=== PATIENT | female | born 1945 | race Caucasian/White ===

== ENCOUNTER → 2024-04-18 10:24 | Outpatient (REF) | payer MEDICARE, OTHER, SELFPAY | LOC: HWRAD 10:24 | PROVIDERS: ATTENDING PHYSICIAN Specialist; FAMILY PHYSICIAN Family Medicine | DX: N20.0 Calculus of kidney (principal) | CPT/HCPCS: 74176 ==

== ENCOUNTER 2024-05-17 22:56 | Emergency (ER) | payer MEDICARE, OTHER, SELFPAY ==
[2024-05-17 22:59] VITALS: BP 150/79
[2024-05-18 00:32] VITALS: BMI 36.9
[2024-05-18 00:34] VITALS: BP 133/60
--- NOTE | 2024-05-18 01:23 | ED.GENMED ---
Addendum entered and electronically signed by Yoan Emanuel PA-C 05/21/24 07:12:
Urine culture shows greater than 100,000 colony-forming units of E. coli. Patient was treated for this as an outpatient
Original Note:
History of Present Illness
<FAROOQ Long (Lenka) - Last Filed: 05/18/24 03:20>
General
Chief Complaint: Musculo-Skeletal Complaint
Source: patient
Exam Limitations: none
Time Seen by Provider: 05/18/24 01:03
Nursing documentation reviewed up to this point in time: agreed with
History of Present Illness
History of Present Illness:
Pt is an 78 yo female with PMHx of L nephrolithiasis, cholelithiasis, back pain, GERD, HTN/HLD who present to the ED with R scapular to R flank pain since 1700 this evening (05/17). The pain came on suddenly, is not worsened nor improved by any
specific position, and is moderate-severe in nature. She took tramadol at 2100 with minimal relief. Endorses nausea, denies vomiting. Denies fevers, chills, HOLDER, chest pain or pressure, dyspnea, abdominal or epigastric pain, pelvic pain, changes in
stool or urinary habits. Last BM today was normal. Pt with a 'chronic e.coli infection' causing urinary burning and frequency, UA ordered by infant and toddler teacher (Carlos Alberto) from 05/13/24 showed e.coli infection, was prescribed an antibiotic and picked it up
today, has not taken the antibiotic.
Of note - pt had MOHS surgery done on her R flank on Monday (05/14). While her pain is localized around that area, it does not feel like pain from the surgery, rather feels 'deeper'.
Cholelithiasis seen on CTAP (04/18/24 and 09/09/23)
Daily medications: esomeprazole and ezetimibe
No hx of reaction to contrast.
Denies hx of abdominal surgeries, still has her gallbladder, B/L kidneys, and appendix.
Past History
<FAROOQ Long (Lenka) - Last Filed: 05/18/24 03:20>
Past History
ED Past Medical History: Asthma, GERD, HTN, Hypercholesterolemia and Other (Renal colic, bleeding diverticuli, kidney stones, cholelithiasis)
ED Past Surgical History: Gynecological, Orthopedic, Urological (Ureteric stent placed June 2014, again 2020) and Other (MOHS surgery to R flank (05/14/24))
Social History
Tobacco: Non-smoker
Alcohol: None
Personal:
Living: with family
Employment: Retired
Family History
Family History: Other (Noncontributory)
Phy Exam
<FAROOQ Long (Lenka) - Last Filed: 05/18/24 03:20>
General Physical Exam
General Presentation: mild distress (pt sitting in chair, restless)
General age: appears stated age
General Skin: warm and dry
General Habitus: obese
General Mental: alert
General Hydration: appears well hydrated
ENT Exam
ENT Exam: swallowing well
Cardiovascular Exam
Cardiovascular Exam: regular rate/rhythm, no edema, no gallop, no murmur and normal peripheral pulses
Pulmonary Exam
Pulmonary Exam: lungs clear, no respiratory distress, no rales, no rhonchi, no wheezing and no cough
Gastrointestinal Exam
Gastrointestinal Exam: normal bowel sounds, non tender, soft, no pulsatile mass, non distended, no cva tenderness and no indwelling devices
Palpation: left upper quadrant: No tenderness (negative Franklin), left lower quadrant: No tenderness (negative Franklin), right upper quadrant: No tenderness (negative Franklin) and right lower quadrant: No tenderness (negative Franklin)
Neurological Exam
Neurological Exam: alert, oriented x3 and speech normal
Musculoskeletal Exam
Musculoskeletal Exam: back tenderness (R mid-scapula to R flank)
Skin Exam
Skin Exam: normal color, warm/dry and other (MOHS surgery scar to L flank)
Course
<FAROOQ Long (Lenka) - Last Filed: 05/18/24 03:20>
Orders/Labs/Results
Orders:
Orders
05/17/24 23:01
EKG [Electrocardiogram (*1)] Urgent
Reason for Study: Other
Other Reason for Exam: shoulder to hip pain
EKG- Treatment ONCE
05/18/24 02:00
0.9% Sodium Chloride 1000 ml [Nss] 1,000 ml IV 200 mls/hr
Ketorolac [Toradol] 15 mg IV NOW STA
05/18/24 02:14
Complete Blood Count/With Diff Urgent
Comprehensive Metabolic Panel Urgent
Lactic Acid Urgent
Lipase Urgent
05/18/24 03:08
Renal & Bladder US [US Renal With Bladder] Urgent
Comment:
Reason For Exam: acute R flank pain; hx renal stones
05/18/24 05:03
Urine Microscopic Reflex Cult Urgent
Urine Reflex Culture from UA [Urinalysis Reflex To Culture] Urgent
Date Specimen was Collected: 05/18/24
Time Specimen was Collected: 05:02
Urine Culture Urgent
ARYA Source: U
Specimen Description:
Date Specimen was Collected: 05/18/24
Time Specimen was Collected: 05:02
Abnormal Lab Results
05/18/24 05/18/24
02:14 05:03
RBC 4.04 L 10^6/uL
(4.20-5.40)
Hgb 9.8 L g/dL
(12.0-16.0)
Hct 30.8 L %
(37.0-47.0)
MCV 76.2 L fL
(81.0-99.0)
MCH 24.3 L pg
(27.0-31.0)
MCHC 31.8 L g/dL
(33.0-37.0)
RDW 17.1 H %
(11.5-14.5)
Lymphocytes % 18.5 L %
(20.5-51.1)
Chloride 108 H mmol/L
(98-107)
Glucose 127 H mg/dl
(70-99)
AST 45 H U/L
(14-36)
ALT 38 H U/L
(0-35)
Urine Nitrite (Reflex) Positive A
(Negative)
Leukocyte Esterase Rfl 1+ A
(Negative)
Urine RBC 3-6 A /HPF
(0-2)
Urine WBC (Reflex) 40-50 A /HPF
(0-5)
Urine Bacteria (Reflex) Many A
(Negative)
05/18/24 02:14
05/18/24 02:14
Vital Signs
Initial and Last Documented VS:
Initial Vital Signs
Temp Pulse Resp BP Pulse Ox
97.6 F 90 18 150/79 98
05/17/24 22:59 05/17/24 22:59 05/17/24 22:59 05/17/24 22:59 05/17/24 22:59
Last Documented Vital Signs
Temp Pulse Resp BP Pulse Ox
98.6 F 90 18 145/77 98
05/18/24 04:05 05/17/24 22:59 05/17/24 22:59 05/18/24 05:35 05/17/24 22:59
Yamilkalt;Dunia Thorne DO - Last Filed: 05/18/24 07:05>
Orders/Labs/Results
Orders:
Orders
05/17/24 23:01
EKG [Electrocardiogram (*1)] Urgent
Reason for Study: Other
Other Reason for Exam: shoulder to hip pain
EKG- Treatment ONCE
05/18/24 02:00
0.9% Sodium Chloride 1000 ml [Nss] 1,000 ml IV 200 mls/hr
Ketorolac [Toradol] 15 mg IV NOW STA
05/18/24 02:14
Complete Blood Count/With Diff Urgent
Comprehensive Metabolic Panel Urgent
Lactic Acid Urgent
Lipase Urgent
05/18/24 03:08
Renal & Bladder US [US Renal With Bladder] Urgent
Comment:
Reason For Exam: acute R flank pain; hx renal stones
05/18/24 05:03
Urine Microscopic Reflex Cult Urgent
Urine Reflex Culture from UA [Urinalysis Reflex To Culture] Urgent
Date Specimen was Collected: 05/18/24
Time Specimen was Collected: 05:02
Urine Culture Urgent
ARYA Source: U
Specimen Description:
Date Specimen was Collected: 05/18/24
Time Specimen was Collected: 05:02
Abnormal Lab Results
05/18/24 05/18/24
02:14 05:03
RBC 4.04 L 10^6/uL
(4.20-5.40)
Hgb 9.8 L g/dL
(12.0-16.0)
Hct 30.8 L %
(37.0-47.0)
MCV 76.2 L fL
(81.0-99.0)
MCH 24.3 L pg
(27.0-31.0)
MCHC 31.8 L g/dL
(33.0-37.0)
RDW 17.1 H %
(11.5-14.5)
Lymphocytes % 18.5 L %
(20.5-51.1)
Chloride 108 H mmol/L
(98-107)
Glucose 127 H mg/dl
(70-99)
AST 45 H U/L
(14-36)
ALT 38 H U/L
(0-35)
Urine Nitrite (Reflex) Positive A
(Negative)
Leukocyte Esterase Rfl 1+ A
(Negative)
Urine RBC 3-6 A /HPF
(0-2)
Urine WBC (Reflex) 40-50 A /HPF
(0-5)
Urine Bacteria (Reflex) Many A
(Negative)
05/18/24 02:14
05/18/24 02:14
Vital Signs
Initial and Last Documented VS:
Initial Vital Signs
Temp Pulse Resp BP Pulse Ox
97.6 F 90 18 150/79 98
05/17/24 22:59 05/17/24 22:59 05/17/24 22:59 05/17/24 22:59 05/17/24 22:59
Last Documented Vital Signs
Temp Pulse Resp BP Pulse Ox
98.6 F 90 18 145/77 98
05/18/24 04:05 05/17/24 22:59 05/17/24 22:59 05/18/24 05:35 05/17/24 22:59
<FAROOQ Long (Lenka) - Last Filed: 05/18/24 03:20>
MDM/Problems Addressed
Differential Diagnosis Includes:
DDx: MSK pain vs cholecystitis vs nephrolithiasis vs infection 2/2 MOHS surgery
Pt restless in room, uncomfortable in any position. CT one month ago (04/18) shows kidney stone to L side, nothing on R side, and gall stones noted as well. Pain radiating from right mid-scapula to right flank. Recent MOHS surgery x 4d to R flank.
Will order CBC, CMP, lipase, lactic acid, EKG.
Chronic conditions affecting care:
nephrolithiasis (L), cholelithiasis
Chronic conditions affecting care: Kidney disease
<Isabel Nielsen (Lenka) STPA - Last Filed: 05/18/24 03:20>
*Critical Care Note
Total Time (30-74mins, 75-104mins- exclusive of procedures): Not Applicable
<Dunia Thorne DO - Last Filed: 05/18/24 07:05>
*Radiology
Radiology exam reviewed: radiology read reviewed (Renal ultrasound is unremarkable. No hydronephrosis. Multiple parapelvic cyst. Nonobstructing left renal stones.)
*Pulse Oximetry
Patient hypoxic: no
<FAROOQ Long (Lenka) - Last Filed: 05/18/24 03:20>
Update Note
Update Note:
CBC - labs unchanged from last draw 09/09/23
CMP - labs unchanged from last draw 09/09/23, aside from improvement in AST/ALT
ED Attending Note
<Isabel Marley) FAROOQ Nielsen - Last Filed: 05/18/24 03:20>
-
Portions of this chart may have been created with voice recognition software.� Occasional wrong word or��sound alike� substitutions may have occurred due to the inherent limitations of voice recognition software.
<Dunia Thorne DO - Last Filed: 05/18/24 07:05>
ED Attending Note
Patient seen and examined by attending physician: Yes
I performed the substantive portion of visit, reviewed & personally made and approve the management plan that is documented in note by myself or OLLIE.: Yes
ED Attending Note:
This is an 78-year-old woman who resides at home with her . She has history of hypertension, hyperlipidemia, UTIs as well as history of kidney stones and incidental gallstones.
Previous kidney stones requiring lithotripsy and stent placement approximately 3 years ago while residing in [place]. She follows with Dr. Carcamo with most recent visit 1 month ago and at that time complaining of some left flank pain. She
underwent CT of the abdomen and pelvis April 18 showing a small nonobstructing left intrarenal calculus, incidental gallstones, no evidence of intrarenal stones on the right. Left flank pain resolved without return.
She had an outpatient urinalysis/urine culture performed May 13 that returned positive for greater than 100,000 colony count of E. coli and a prescription for 7-day course of cefpodoxime was called to her pharmacy May 16 by urology. She
picked this prescription up May 17 but has not started this as yet. She has had no UTI symptoms, no dysuria and urgency nor hematuria. No fever nor chills. No abdominal pain.
She does admit to frequent mild nausea most noted first thing in the morning but has had no vomiting.
She underwent Mohs surgical procedure right flank region on Monday, May 14.
Tonight she developed some right superior flank pain, pain about her Mohs surgical site around 5 PM, persistent and unrelieved with 1 tramadol tablet that she took around 9 PM. She admits to feeling uncomfortable, increased pain when she attempts
to lie down more so when she attempts to lie on her back. Current pain feels different from previous episodes of renal colic.
She denies cough nor shortness of breath. Pain is not worse with deep breath.
GENERAL: 78-year-old obese woman sitting in chair in exam room. Appears her stated age. Awake and alert, appears mildly uncomfortable but easily communicative. is accompanying.
EYE: anicteric
NECK: Supple, nontender, no meningismus, no significant adenopathy.
ENT: oral mucosa is moist. No rhinorrhea.
CARDIAC: Regular rate and rhythm. no murmur.
LUNGS: Clear breath sounds bilaterally, no acute respiratory distress, no wheezes/rales/rhonchi
ABDOMEN: Rotund, soft, nondistended, without focal tenderness, no r/g, Normoactive BS.
BACK: There is no midline bony tenderness. There is a dry and intact surgical dressing right superior flank region with mild local soft tissue swelling with mild to moderate local tenderness to palpation on and about this surgical site. Palpation
about this surgical site appears to exactly reproduce patient's pain complaint.
NEUROLOGICAL: Alert and oriented x3, no focal neuro deficits. Gait is andrade and steady.
SKIN: Warm and dry, normal color, skin intact. No rash.
MUSCULOSKELETAL: No C/C/E. peripheral pulses are full and equal b/l. No palpable tenderness.
PSYCH: Normal and appropriate interaction.
Concern for postoperative pain, patient has known UTI, concern for pyelonephritis. Other consideration is ureteric stone/renal colic however patient admits that current pain feels quite different from renal colic in the past and it is reassuring
that she underwent CT of the abdomen and pelvis just 1 month ago showing no intrarenal stones on the right.
She does have known gallstones however current pain is not consistent with biliary colic, abdomen is soft and nontender.
Will medicate for pain with an IV dose of Toradol, initiate IV fluids and will check labs.
Will consider imaging depending on lab results and clinical course.
05/18/2024 0650 AM
Patient feeling markedly improved after small IV dose of Toradol. Ambulatory to and from the bathroom with steady unaided gait.
Labs show mild but stable anemia. Minimally elevated LFTs but improved from previous. Normal lactic acid. Normal BUN and creatinine.
Urinalysis consistent with UTI, similar to outpatient result a few days ago. Urine culture from few days ago positive for E. coli. Recommend she initiate antibiotic that was picked up yesterday, prescribed by urologist. She remains afebrile,
normal white blood cell count, Nothing to signify pyelonephritis.
I suspect her right superior flank pain is focal, postoperative pain in nature. Recommend short course of NSAID and may take tramadol as needed for moderate pain.
Prompt follow-up with PCP for recheck.
Follow-up with urologist as well as templer head as already scheduled.
Discharge Plan
Departure
Patient Disposition: Home (Routine Discharge)
Date of Disposition: 05/18/24
Time of Disposition: 06:58
Patient with high blood pressure during this ER visit?: No
Condition: Good
Discharge Problem:
acute postoperative pain of Right back, E. coli urinary tract infection
Instructions: Managing pain after surgery
Prescriptions:
New
celecoxib [Celebrex] 200 mg capsule
200 mg PO BID PRN (Reason: BACK PAIN) Qty: 10 0RF
No Action
esomeprazole magnesium [Nexium] 40 MG capsule,delayed release(DR/EC)
40 mg PO DAILY
ezetimibe 10 MG tablet
10 mg PO DAILY
Vitamin D3
5,000 unit PO DAILY
mupirocin 1 APPLIC ointment
1 applic topical BID Qty: 1 0RF
Patient Comments:
bid since thursday 07/26, last dose 113 pm
ferrous sulfate [Feosol] 325 MG tablet
325 mg PO DAILY
sennosides [senna] 1 TABLET tablet
1 tab PO BID 0RF
Rx Instructions:
increase dosing if constipated
magnesium hydroxide 30 ML suspension
30 ml PO DAILYPRN PRN (Reason: constipation) 0RF
aspirin 81 MG tablet,chewable
81 mg PO BID 0RF
Rx Instructions:
with food
cyanocobalamin (vitamin B-12) [Vitamin B-12] 2,500 MCG tablet, sublingual
2,500 mcg sublingual DAILY Qty: 1 0RF
prednisone 5 MG tablet
5 mg PO DAILY Qty: 0 0RF
Rx Instructions:
with food
tramadol 50 MG tablet
50 mg PO Q6H Qty: 0 0RF
acetaminophen [Tylenol Arthritis] 650 MG tablet extended release
650 mg PO QID Qty: 0 0RF
oxycodone 5 MG tablet
5 mg PO Q6HPRN PRN (Reason: severe pain) Qty: 12 0RF
ondansetron 4 MG tablet,disintegrating
4 mg PO TIDPRN PRN (Reason: nausea/vomiting) Qty: 12 0RF
ondansetron 4 MG tablet,disintegrating
4 mg PO TIDPRN PRN (Reason: nausea/vomiting) Qty: 8 0RF
levofloxacin 500 MG tablet
500 mg PO DAILY Qty: 6 0RF
amoxicillin-pot clavulanate 1 TABLET tablet
1 tab PO Q12 Qty: 20 0RF
amoxicillin-pot clavulanate 875-125 mg tablet
1 tab PO BID Qty: 20 0RF
tramadol 50 mg tablet
50 mg PO Q8H PRN (Reason: moderate pain) Qty: 10 0RF
Referrals:
Rey Carcamo Jr., MD [Active] - Call in 1-3 days for appt
UNKNOWN - PT DOES,NOT KNOW [Family Provider] -
Activity Restrictions/Additional Instructions:
Follow-up with your templer head as planned.
You may put a heating pad on your right back as needed for comfort.
You have been prescribed a short course of Celebrex to be taken twice daily as needed for pain.
You have a UTI and recommend you start the cefpodoxime antibiotic that was picked up yesterday. Take this for 7 days as instructed.
Interventions
Interventions:
*General Assessment Last Done: 05/18/24 00:37
*Neglect/Abuse Screening Last Done: 05/18/24 00:38
ED-Musculoskeletal Assessment Last Done: 05/18/24 00:35
Discharge Date and Time
Print Language: CITIZEN OF [place]
[2024-05-18 02:24] LABS: % Basophils 0.3 % (0-2); % Eosinophils 2.1 % (0-6); % Immature Granulocytes 0.5 % (0-0.5); % Lymphocytes 18.5 % (20.5-51.1); % Monocytes 8.1 % (1.7-9.3); % Neutrophils 70.5 % (42.2-75.2); Absolute Eosinophils 0.1 10^3/uL (0-0.7); Absolute Lymphocytes 1.2 10^3/uL (1.2-3.4); Absolute Monocytes 0.5 10^3/uL (0.1-0.6); Absolute Neutrophils 4.4 10^3/uL (1.4-6.5); Hematocrit 30.8 % (37.0-47.0); Hemoglobin 9.8 g/dL (12.0-16.0); Mean Corp Hgb Conc. 31.8 g/dL (33.0-37.0); Mean Corpuscular Hgb 24.3 pg (27.0-31.0); Mean Corpuscular Volume 76.2 fL (81.0-99.0); Mean Platelet Volume 9.2 fL (7.4-10.4); Nucleated Red Blood Cells % 0 %; Platelet Count 274 10^3/uL (130-400); Red Blood Cell Count 4.04 10^6/uL (4.20-5.40); Red Cell Dist. Width 17.1 % (11.5-14.5); White Blood Cell Count 6.3 10^3/uL (4.8-10.8)
[2024-05-18] MEDS: TORADOL 15 MG IV (02:30)
[2024-05-18] MEDS: NSS 1000 IV (02:33)
[2024-05-18 02:37] LABS: Lactic Acid 1.1 mmol/L (0.7-2.0)
[2024-05-18 02:38] LABS: ALT (SGPT) 38 U/L (0-35); AST (SGOT) 45 U/L (14-36); Albumin 4.2 g/dl (3.5-5.0); Alkaline Phosphatase 109 U/L (38-126); Blood Urea Nitrogen 13 mg/dl (7-17); Calcium 9.6 mg/dl (8.4-10.2); Carbon Dioxide 22 mmol/L (22-30); Chloride 108 mmol/L (98-107); Estimated Creatinine Clearance 66 ml/min; Glucose 127 mg/dl (70-99); Lipase 221 U/L (23-300); Potassium 4.5 mmol/L (3.5-5.1); Sodium 141 mmol/L (135-145); Total Bilirubin 0.4 mg/dl (0.2-1.3); Total Protein 6.6 g/dl (6.3-8.2); eGFR > 60.00
[2024-05-18 05:19] LABS: Urine Albumin Negative (Neg - Trace); Urine Bilirubin Negative (Negative); Urine Color Yellow; Urine Glucose Negative (Negative); Urine Ketone Negative (Negative); Urine Leukocyte 1+ (Negative); Urine Nitrite Positive (Negative); Urine Occult Blood Negative (Negative); Urine Specific Gravity 1.015 (<1.030); Urine Urobilinogen Negative (Neg - 1+)
[2024-05-18 05:22] LABS: Urine Character Slightly Cloudy (Clear)
[2024-05-18 05:35] VITALS: BP 145/77
[2024-05-18 06:12] LABS: Urine Squamous Cell >30 /LPF (Few)
[2024-05-18 06:13] LABS: Urine Bacteria Many (Negative); Urine White Cell 40-50 /HPF (0-5)
--- NOTE | 2024-05-18 07:39 | EDRN ---
this RN attempted to discontinue to pts PIV, the pt started to hyperventilate and stated to this RN, 'Can you please like be careful it hurts!', this RN explained to the pt that unfortunately removing the PIV may be uncomfortable but it will only
last for a few seconds, this RN attempted to take the pts PIV out and when this RN went to pull back tegaderm the pt grabbed this RN's hand and stated to this RN, 'I said it hurts', this RN asked the pt to take her hand off of this RN, and this RN
gently removed the tegaderm, the pt appeared to be panicked and stated, 'The needle hurts', this RN explained that the PIV is not a needle however it is a plastic catheter that is in the vein, the PIV was removed and a pressure dressing was applied,
the pt stated, 'I don't like how you took that out', this RN apologized for the pts dissatisfaction of this RN removing the PIV, discharge papers were provided to the pt and the pts along with discharge teaching by this RN and Dr. Thorne
[2024-05-18 07:42] VITALS: BP 145/79
== END 2024-05-18 07:45 | disposition home or self-care (01) ==
LOC: EMR 22:56
PROVIDERS: EMERGENCY PHYSICIAN Emergency Medicine
DX: G89.18 Other acute postprocedural pain (principal); M54.9 Dorsalgia, unspecified; N39.0 Urinary tract infection, site not specified; B96.20 Unspecified Escherichia coli [E. coli] as the cause of diseases classified elsewhere; K21.9 Gastro-esophageal reflux disease without esophagitis; I10 Essential (primary) hypertension; E78.00 Pure hypercholesterolemia, unspecified
CPT/HCPCS: 99285; 96374; 96361 ×3; 76770; 80053; 81003; 81015; 83605; 83690; 85025; 87077; 87086; 87186; 93005

== ENCOUNTER 2024-05-23 22:04 | Emergency (ER) | payer MEDICARE, OTHER, SELFPAY ==
[2024-05-23 22:08] VITALS: BP 159/59
--- NOTE | 2024-05-23 22:41 | ED.GENMED ---
History of Present Illness
General
Chief Complaint: Back Pain
Source: patient
Time Seen by Provider: 05/23/24 22:31
History of Present Illness
History of Present Illness:
78-year-old female presents to the emergency room complaining of pain in her right upper thoracic region. Pain began fairly suddenly this evening. She endorses doing some work around her house and property. Pain is worse with certain movements.
She denies shortness of breath. Pain is not made worse by deep inspiration. She took an oxycodone at home which has helped some. No fever or chills. No cough.
Past History
Past History
ED Past Medical History: Asthma, GERD, HTN, Hypercholesterolemia and Other (Renal colic, bleeding diverticuli, kidney stones, cholelithiasis)
ED Past Surgical History: Gynecological, Orthopedic, Urological (Ureteric stent placed June 2014, again 2020) and Other (MOHS surgery to R flank (05/14/24))
Social History
Tobacco: Non-smoker
Alcohol: None
Personal:
Living: with family
Employment: Retired
Family History
Family History: Other (Noncontributory)
Phy Exam
Physical Exam
Physical Exam:
General: Awake, Alert, Oriented X3. No acute distress.
Vitals: unremarkable
Head: Atraumatic
Eyes: Pupils equal, EOMI
Throat: Airway intact, no exudates
Neck: Trachea midline
Lungs: Clear and equal b/l
Heart: Regular rate, no murmurs
Abd: Soft, Nontender, No pulsatile mass
Back: Tenderness palpation right mid thoracic paraspinal musculature.
Neuro: Nonfocal
Skin: Warm, dry, no rash
Extremities: pulses equal b/l, no edema
Course
Orders/Labs/Results
Orders:
Orders
05/23/24 22:38
Ketorolac [Toradol] 15 mg IV NOW STA
05/23/24 22:39
Electrocardiogram (*1) Stat
Reason for Study: Other
Other Reason for Exam: chest pain
EKG- Treatment ONCE
05/23/24 22:40
CR Chest - 2 Views Urgent
Comment:
Reason For Exam: right thoracic pain
05/23/24 23:30
Complete Blood Count/With Diff Urgent
Comprehensive Metabolic Panel Urgent
Troponin I Urgent
05/23/24 23:44
Ondansetron Injectable [Zofran] 4 mg .ROUTE .STK-MED ONE
05/23/24 23:45
Ondansetron Injectable [Zofran] 4 mg IV NOW STA
05/24/24 01:10
Dexamethasone [Decadron] 4 mg PO NOW STA
Abnormal Lab Results
05/23/24
23:30
RBC 3.90 L 10^6/uL
(4.20-5.40)
Hgb 9.3 L g/dL
(12.0-16.0)
Hct 30.1 L %
(37.0-47.0)
MCV 77.2 L fL
(81.0-99.0)
MCH 23.8 L pg
(27.0-31.0)
MCHC 30.9 L g/dL
(33.0-37.0)
RDW 17.1 H %
(11.5-14.5)
Lymphocytes % 19.8 L %
(20.5-51.1)
Glucose 114 H mg/dl
(70-99)
AST 54 H U/L
(14-36)
ALT 40 H U/L
(0-35)
05/23/24 23:30
05/23/24 23:30
Vital Signs
Initial and Last Documented VS:
Initial Vital Signs
Temp Pulse Resp BP Pulse Ox
98.5 F 100 20 159/59 95
05/23/24 22:08 05/23/24 22:08 05/23/24 22:08 05/23/24 22:08 05/23/24 22:08
Last Documented Vital Signs
Temp Pulse Resp BP Pulse Ox
98.5 F 83 20 127/61 98
05/23/24 22:08 05/24/24 01:25 05/24/24 01:25 05/24/24 01:25 05/24/24 01:40
MDM/Problems Addressed
Differential Diagnosis Includes:
Muscle strain, pneumothorax, pneumonia
MDM/Problems Addressed:
Chest x-ray shows no acute abnormalities. Labs are reassuring. EKG shows no acute ischemic changes. Patient feels better after this Toradol. Will continue Celebrex which she had been taking with some improvement. Suspect the patient's
musculoskeletal pain got worse with vacuuming and cleaning that she was doing today.
*Radiology
Radiology exam reviewed: preliminary read by ED provider (No acute abnormalities)
*Pulse Oximetry
Patient hypoxic: no
*Critical Care Note
Total Time (30-74mins, 75-104mins- exclusive of procedures): Not Applicable
ED Attending Note
-
Portions of this chart may have been created with voice recognition software.� Occasional wrong word or��sound alike� substitutions may have occurred due to the inherent limitations of voice recognition software.
Discharge Plan
Departure
Patient Disposition: Home (Routine Discharge)
Date of Disposition: 05/24/24
Time of Disposition: 01:07
Patient with high blood pressure during this ER visit?: No
Condition: Fair
Discharge Problem:
Strain of thoracic region
Instructions: Upper Back Pain (DC)
Prescriptions:
New
methylprednisolone [Methylpred DP] 4 mg tablets,dose pack
See Rx Instructions .ROUTE .COMPLEX Qty: 21 0RF
Rx Instructions:
for 6 days
celecoxib [Celebrex] 200 mg capsule
200 mg PO BID PRN (Reason: back pain) Qty: 20 0RF
No Action
esomeprazole magnesium [Nexium] 40 MG capsule,delayed release(DR/EC)
40 mg PO DAILY
ezetimibe 10 MG tablet
10 mg PO DAILY
celecoxib [Celebrex] 200 mg capsule
200 mg PO BID PRN (Reason: BACK PAIN) Qty: 10 0RF
Referrals:
Juancarlos Quesada DO [Family Provider] -
Interventions
Interventions:
*Risk Screen - Suicide Last Done: 05/23/24 22:08
*General Assessment Last Done: 05/23/24 22:08
*Neglect/Abuse Screening Last Done: 05/23/24 22:08
ED- Fall Risk Assessment Last Done: 05/23/24 22:08
*ED COVID-19 Vaccine History Last Done: 05/23/24 22:08
*Nursing Disposition Last Done: 05/24/24 01:40
ED-Musculoskeletal Assessment Last Done: 05/23/24 23:19
Discharge Date and Time
Discharge Date/Time: 05/24/24 01:40
Print Language: [place]
[2024-05-23 23:13] VITALS: BP 145/65; BMI 39.7
[2024-05-23 23:42] LABS: % Basophils 0.5 % (0-2); % Eosinophils 2.2 % (0-6); % Immature Granulocytes 0.3 % (0-0.5); % Lymphocytes 19.8 % (20.5-51.1); % Monocytes 7.9 % (1.7-9.3); % Neutrophils 69.3 % (42.2-75.2); Absolute Eosinophils 0.1 10^3/uL (0-0.7); Absolute Lymphocytes 1.2 10^3/uL (1.2-3.4); Absolute Monocytes 0.5 10^3/uL (0.1-0.6); Absolute Neutrophils 4.1 10^3/uL (1.4-6.5); Hematocrit 30.1 % (37.0-47.0); Hemoglobin 9.3 g/dL (12.0-16.0); Mean Corp Hgb Conc. 30.9 g/dL (33.0-37.0); Mean Corpuscular Hgb 23.8 pg (27.0-31.0); Mean Corpuscular Volume 77.2 fL (81.0-99.0); Mean Platelet Volume 9.1 fL (7.4-10.4); Nucleated Red Blood Cells % 0 %; Platelet Count 245 10^3/uL (130-400); Red Cell Dist. Width 17.1 % (11.5-14.5)
[2024-05-23] MEDS: TORADOL 15 MG IV (23:42)
[2024-05-23] MEDS: ZOFRAN 4 MG IV (23:46)
[2024-05-23 23:51] LABS: ALT (SGPT) 40 U/L (0-35); AST (SGOT) 54 U/L (14-36); Alkaline Phosphatase 82 U/L (38-126); Blood Urea Nitrogen 17 mg/dl (7-17); Calcium 9.4 mg/dl (8.4-10.2); Carbon Dioxide 27 mmol/L (22-30); Chloride 107 mmol/L (98-107); Estimated Creatinine Clearance 57 ml/min; Glucose 114 mg/dl (70-99); Potassium 4.2 mmol/L (3.5-5.1); Sodium 142 mmol/L (135-145); Total Bilirubin 0.4 mg/dl (0.2-1.3); Total Protein 6.4 g/dl (6.3-8.2); eGFR > 60.00
[2024-05-23 23:56] VITALS: BP 144/72
[2024-05-24 00:05] LABS: Troponin I < 0.012 ng/ml
[2024-05-24 00:35] VITALS: BP 142/72
[2024-05-24 00:56] VITALS: BP 127/61
[2024-05-24] MEDS: DECADRON 4 MG PO (01:13)
[2024-05-24 01:25] VITALS: BP 127/61
== END 2024-05-24 01:40 | disposition home or self-care (01) ==
LOC: EMR 22:04
PROVIDERS: EMERGENCY PHYSICIAN Emergency Medicine; FAMILY PHYSICIAN Family Medicine
DX: S29.012A Strain of muscle and tendon of back wall of thorax, initial encounter (principal); X58.XXXA Exposure to other specified factors, initial encounter; Y93.H9 Activity, other involving exterior property and land maintenance, building and construction; Y92.008 Other place in unspecified non-institutional (private) residence as the place of occurrence of the external cause; E78.00 Pure hypercholesterolemia, unspecified; I10 Essential (primary) hypertension; J45.909 Unspecified asthma, uncomplicated; K21.9 Gastro-esophageal reflux disease without esophagitis
CPT/HCPCS: 71046; 80053; 84484; 85025; 93005; 96374; 96375; 99284

== ENCOUNTER → 2024-06-06 12:30 | Outpatient (REF) | payer MEDICARE, OTHER, SELFPAY | LOC: RAD 12:30 | PROVIDERS: ATTENDING PHYSICIAN Specialist | DX: N20.0 Calculus of kidney (principal) | CPT/HCPCS: 74018 ==

== ENCOUNTER 2025-01-15 20:55 | Emergency (ER) | payer MEDICARE, OTHER, SELFPAY ==
[2025-01-15 20:58] VITALS: BP 178/94
[2025-01-15 21:12] LABS: % Basophils 0.3 % (0-2); % Eosinophils 2.3 % (0-6); % Immature Granulocytes 0.4 % (0-0.5); % Lymphocytes 16.6 % (20.5-51.1); % Monocytes 6.4 % (1.7-9.3); Absolute Eosinophils 0.2 10^3/uL (0-0.7); Absolute Lymphocytes 1.2 10^3/uL (1.2-3.4); Absolute Monocytes 0.4 10^3/uL (0.1-0.6); Absolute Neutrophils 5.1 10^3/uL (1.4-6.5); Hematocrit 31.5 % (37.0-47.0); Hemoglobin 9.5 g/dL (12.0-16.0); Mean Corp Hgb Conc. 30.2 g/dL (33.0-37.0); Mean Corpuscular Hgb 21.7 pg (27.0-31.0); Mean Corpuscular Volume 71.9 fL (81.0-99.0); Mean Platelet Volume 8.7 fL (7.4-10.4); Nucleated Red Blood Cells % 0 %; Platelet Count 308 10^3/uL (130-400); Red Blood Cell Count 4.38 10^6/uL (4.20-5.40); White Blood Cell Count 6.9 10^3/uL (4.8-10.8)
[2025-01-15 21:21] LABS: Urine Albumin Negative (Neg - Trace); Urine Bilirubin Negative (Negative); Urine Character Clear (Clear); Urine Color Yellow; Urine Glucose Negative (Negative); Urine Ketone Negative (Negative); Urine Leukocyte Negative (Negative); Urine Nitrite Negative (Negative); Urine Occult Blood Negative (Negative); Urine Specific Gravity 1.015 (<1.030); Urine Urobilinogen Negative (Neg - 1+)
[2025-01-15 21:29] LABS: ALT (SGPT) 27 U/L (0-35); AST (SGOT) 33 U/L (14-36); Alkaline Phosphatase 87 U/L (38-126); Blood Urea Nitrogen 20 mg/dl (7-17); Calcium 9.4 mg/dl (8.4-10.2); Carbon Dioxide 25 mmol/L (22-30); Chloride 111 mmol/L (98-107); Glucose 128 mg/dl (70-99); Potassium 4.5 mmol/L (3.5-5.1); Sodium 143 mmol/L (135-145); Total Bilirubin 0.5 mg/dl (0.2-1.3); Total Protein 6.8 g/dl (6.3-8.2); eGFR > 60.00
--- NOTE | 2025-01-15 23:39 | ED.GENMED ---
History of Present Illness
General
Chief Complaint: Back Pain
Source: patient and previous hospital records (ED visit April 2024 for very similar right superior flank pain.)
Exam Limitations: none
Time Seen by Provider: 01/15/25 23:28
Nursing documentation reviewed up to this point in time: agreed with
History of Present Illness
History of Present Illness:
This is an 79-year-old female who resides at home with her . She has history of hypertension, hyperlipidemia, frequent UTIs, history of back pain with prior history of epidural steroid injections. She also has remote history of kidney
stones with previous lithotripsy and stent placement approximately 4 years ago while residing in [place]. She follows with Dr. Carcamo.
She presents with 2-day history of constant right superior flank pain that seems worse with movement of her trunk, worse with lying supine. No radiation of the pain. She has had similar right flank pain for which she was evaluated in this ED twice
April 2024 and admits that this pain is very similar. At that time extensive ED workup noted a UTI but renal ultrasound was unremarkable, no evidence of hydronephrosis nor right intrarenal stones.
Previous CTs have showed incidental left renal calculi.
She denies nausea nor vomiting, no abdominal pain no chest pain, no cough no shortness of breath. She does note bilateral lower extremity edema which is somewhat more pronounced than her chronic lower extremity edema.
She has been applying local ice as well as heat to right thoracic back region with minimal temporary improvement. She has not been taking anything for pain.
She states she recently completed a course of Cipro for UTI. She denies UTI symptoms currently. No fever nor chills. No recent fall nor insightful injury.
Past History
Past History
ED Past Medical History: Asthma, GERD, HTN, Hypercholesterolemia and Other (Renal colic, bleeding diverticuli, kidney stones, cholelithiasis)
ED Past Surgical History: Gynecological, Orthopedic, Urological (Ureteric stent placed June 2014, again 2020) and Other (MOHS surgery to R flank (05/14/24))
Social History
Tobacco: Non-smoker
Alcohol: None
Personal:
Living: with family
Employment: Retired
Family History
Family History: Other (Noncontributory)
Phy Exam
Physical Exam
Physical Exam:
GENERAL: 79-year-old woman appears her stated age, awake and alert, appears mildly uncomfortable, walking about exam room with steady unaided gait.
EYE: anicteric
NECK: Supple, nontender, no meningismus, no significant adenopathy.
ENT: oral mucosa is moist. No rhinorrhea.
CARDIAC: Regular rate and rhythm. no murmur.
LUNGS: Clear breath sounds bilaterally, no acute respiratory distress, no wheezes/rales/rhonchi
ABDOMEN: Rotund, soft, nondistended, without focal tenderness, no r/g, no cvat. normoactive BS.
BACK: Mild to moderate tenderness right superior flank, right inferior scapular thoracic region. Palpation seems to exactly reproduce patient's pain complaint. There is moderate focal para-thoracic muscle spasm. No midline bony tenderness.
NEUROLOGICAL: Alert and oriented x3, no focal neuro deficits. Gait is andrade and steady.
SKIN: Warm and dry, normal color, skin intact. No rash.
MUSCULOSKELETAL: No clubbing or cyanosis. Mild none pitting edema bilateral lower extremities. Peripheral pulses are full and equal b/l. No palpable tenderness.
PSYCH: Normal and appropriate interaction.
Course
Orders/Labs/Results
Orders:
Orders
01/15/25 21:04
Complete Blood Count/With Diff Urgent
Comprehensive Metabolic Panel Urgent
01/15/25 21:14
Urinalysis Reflex To Culture Urgent
Date Specimen was Collected: 01/15/25
Time Specimen was Collected: 20:58
01/15/25 23:38
Ketorolac [Toradol] 30 mg IM NOW STA
01/15/25 23:52
Ondansetron Orally Disint [Zofran Odt (Orally Disintegrating)] 4 mg .ROUTE .STK-MED ONE
Ondansetron Orally Disint [Zofran Odt (Orally Disintegrating)] 4 mg PO NOW STA
01/16/25 00:31
Lidocaine [Lidocaine 4% Patch] 1 patch TOPICAL NOW STA
Apply Lidocaine patch(s) to:: right thoracic back
Oxycodone/Acetaminophen [Percocet 5/325] 1 tablet PO NOW STA
01/16/25 01:13
CT Abd/pel Without Iv Or Oral Urgent
Comment:
Reason For Exam: right flank pain
01/16/25 01:54
Dexamethasone Sod Phosphate [Decadron] 10 mg IV NOW STA
HYDROmorphone [Dilaudid] 0.5 mg IV NOW STA
01/16/25 02:25
Ondansetron Injectable [Zofran] 4 mg .ROUTE .STK-MED ONE
01/16/25 03:03
Metoclopramide [Reglan] 10 mg .ROUTE .STK-MED ONE
Abnormal Lab Results
01/15/25
21:04
Hgb 9.5 L g/dL
(12.0-16.0)
Hct 31.5 L %
(37.0-47.0)
MCV 71.9 L fL
(81.0-99.0)
MCH 21.7 L pg
(27.0-31.0)
MCHC 30.2 L g/dL
(33.0-37.0)
RDW 19.0 H %
(11.5-14.5)
Lymphocytes % 16.6 L %
(20.5-51.1)
Chloride 111 H mmol/L
(98-107)
BUN 20 H mg/dl
(7-17)
Glucose 128 H mg/dl
(70-99)
01/15/25 21:04
01/15/25 21:04
Vital Signs
Initial and Last Documented VS:
Initial Vital Signs
Temp Pulse Resp BP Pulse Ox
98.4 F 108 18 178/94 98
01/15/25 20:58 01/15/25 20:58 01/15/25 20:58 01/15/25 20:58 01/15/25 20:58
Last Documented Vital Signs
Temp Pulse Resp BP Pulse Ox
98.4 F 108 18 178/94 95
01/15/25 20:58 01/15/25 20:58 01/15/25 20:58 01/15/25 20:58 01/15/25 23:21
MDM/Problems Addressed
Differential Diagnosis Includes:
History and exam most consistent with musculoskeletal thoracic back pain. Less likely kidney stone, pyelonephritis, herpes zoster, aortic dissection, CAD.
Focal parathoracic pain is clearly reproducible with palpation with palpable focal parathoracic muscle spasm.
Has had very similar back pain noted previously.
No focal neurodeficits. Gait is andrade and steady. Abdominal exam is soft, benign, nontender.
Labs are reassuring with mild but stable anemia. Normal chemistries.
Urinalysis is clear. No evidence of UTI, no hematuria.
Will trial an IM dose of Toradol as patient has done well with this in the past.
At this point with reassuring exam, reassuring labs and urinalysis, no indication for imaging.
Chronic conditions affecting care: HTN and Other (History of kidney stones, remote history of GI bleed, history of vertebral DJD)
*Radiology
Radiology exam reviewed: radiology read reviewed
*Pulse Oximetry
Patient hypoxic: no
*Critical Care Note
Total Time (30-74mins, 75-104mins- exclusive of procedures): Not Applicable
Update Note
Update Note:
01:45
Despite multiple medications patient continues with significant right superior flank pain. Right flank pain continues to to be reproducible upon palpation.
Will check CT assess for potential ureteric stone.
Will trial an IV dose of Dilaudid, Decadron.
04:45
Patient feeling markedly improved after IV Dilaudid, IV Decadron.
CAT scan shows gallstones, nonobstructing bilateral kidney stones. Overall similar to previous.
She did develop however moderate nausea after IV Dilaudid which seemed worsened with change in position somewhat vertiginous in nature. Nausea has since resolved after an IV dose of Zofran and IV dose of Reglan.
She now admits to significant physical activity getting ready for , bending, lifting, baking etc which could certainly have aggravated her thoracic back pain.
Also admits to moderate dietary indiscretion over , consuming a fair amount of high sodium foods which I suspect has exacerbated bilateral lower extremity edema.
Again, she has had no shortness of breath, lungs are clear to auscultation. Nothing to suggest fluid overload and no history of thromboembolism.
Will discharge to home with prescription for tapering dose of prednisone as well as a few tramadol for as needed moderate pain.
Recommend continuing local heat.
Recommend strict low-sodium diet.
Knee-high compression socks to wear on a daily basis.
Will refer to physical therapy for outpatient evaluation and treatment.
Prompt follow-up with PCP for recheck.
ED Attending Note
-
Portions of this chart may have been created with voice recognition software.� Occasional wrong word or��sound alike� substitutions may have occurred due to the inherent limitations of voice recognition software.
Discharge Plan
Departure
Patient Disposition: Home (Routine Discharge)
Date of Disposition: 01/16/25
Time of Disposition: 04:45
Patient with high blood pressure during this ER visit?: No
Discharge Problem:
Acute right-sided thoracic back pain
Instructions: Upper Back Pain (DC)
Prescriptions:
New
prednisone 10 mg Tablet
See Rx Instructions .ROUTE .COMPLEX Qty: 30 0RF
Rx Instructions:
Take By Mouth:
40 mg daily x3 days, 30 mg daily x3 days,
20 mg daily x3 days, 10 mg daily x3 days.
tramadol 50 mg tablet
50 mg PO Q8H PRN (Reason: Pain) Qty: 10 0RF
No Action
esomeprazole magnesium [Nexium] 40 MG capsule,delayed release(DR/EC)
40 mg PO DAILY
ezetimibe 10 MG tablet
10 mg PO DAILY
celecoxib [Celebrex] 200 mg capsule
200 mg PO BID PRN (Reason: BACK PAIN) Qty: 10 0RF
methylprednisolone [Methylpred DP] 4 mg tablets,dose pack
See Rx Instructions .ROUTE .COMPLEX Qty: 21 0RF
Rx Instructions:
for 6 days
celecoxib [Celebrex] 200 mg capsule
200 mg PO BID PRN (Reason: back pain) Qty: 20 0RF
Referrals:
Juancarlos Quesada, [Family Provider] - Call in 1-3 days for appt
Interventions
Interventions:
*Risk Screen - Suicide Last Done: 01/15/25 20:58
*General Assessment Last Done: 01/15/25 20:58
*Neglect/Abuse Screening Last Done: 01/15/25 20:58
*ED- Fall Risk Assessment Last Done: 01/15/25 20:58
*ED COVID-19 Vaccine History Last Done: 01/15/25 20:58
ED-Musculoskeletal Assessment Last Done: 01/16/25 01:09
Discharge Date and Time
Print Language: UKRAINIAN
[2025-01-15] MEDS: TORADOL 30 MG IM (23:44)
[2025-01-15] MEDS: ZOFRAN ODT (ORALLY DISINTEGRATING) 4 MG PO (23:53)
[2025-01-16] MEDS: LIDOCAINE 4% PATCH 1 PATCH TOPICAL (00:44)
[2025-01-16] MEDS: PERCOCET 5/325 1 TABLET PO (00:44)
[2025-01-16] MEDS: DILAUDID 0.5 MG IV (01:57)
[2025-01-16] MEDS: DECADRON 10 MG IV (01:57)
--- NOTE | 2025-01-16 03:29 | DOWNTIME ---
There was a [employer] Client [employer] Education Specialist Downtime on 01/16/2025 from 0200 to 01/17/2024 at 0318 . Downtime documentation of patient's care, including medication administrations, has been reconciled in the electronic record per guidelines. Refer to the
patient's paper chart under the miscellaneous tab to see printed paper medication records and downtime forms.
== END 2025-01-16 05:15 | disposition home or self-care (01) ==
LOC: EMR 20:55
PROVIDERS: Emergency Medicine; EMERGENCY PHYSICIAN Emergency Medicine; FAMILY PHYSICIAN Family Medicine
DX: M54.6 Pain in thoracic spine (principal); I10 Essential (primary) hypertension; E78.00 Pure hypercholesterolemia, unspecified; J45.909 Unspecified asthma, uncomplicated; Z87.440 Personal history of urinary (tract) infections; Z87.442 Personal history of urinary calculi
CPT/HCPCS: 99284; 96374; 96375; 96372; 74176; 80053; 81003; 85025

== ENCOUNTER → 2025-03-27 16:00 | Outpatient (REF) | payer MEDICARE, OTHER, SELFPAY | LOC: HWRCS 16:00 | PROVIDERS: ATTENDING PHYSICIAN Internal Medicine Rheumatology; FAMILY PHYSICIAN Family Medicine | DX: R01.1 Cardiac murmur, unspecified (principal); R60.9 Edema, unspecified | CPT/HCPCS: 93306 ==

== ENCOUNTER → 2025-05-13 15:07 | Outpatient (REF) | payer MEDICARE, OTHER, SELFPAY | LOC: HWRAD 15:07 | PROVIDERS: ATTENDING PHYSICIAN Family Medicine; FAMILY PHYSICIAN Family Medicine | DX: R22.1 Localized swelling, mass and lump, neck (principal) | CPT/HCPCS: 76536 ==

== ENCOUNTER 2025-06-07 16:12 | Emergency (ER) | payer MEDICARE, OTHER, SELFPAY ==
[2025-06-07 16:13] VITALS: BP 163/75
[2025-06-07 17:35] VITALS: BMI 40.3
[2025-06-07 17:36] VITALS: BP 154/75
--- NOTE | 2025-06-07 18:18 | ED.GENMED ---
History of Present Illness
General
Chief Complaint: Back Pain
Source: patient
Exam Limitations: none
Time Seen by Provider: 06/07/25 17:55
Nursing documentation reviewed up to this point in time: agreed with
History of Present Illness
History of Present Illness:
Patient to ED wt complaint of middle thoracic back pain. Pain started this AM. THis is a chronic issue for her. SHe reports multiple visits in the past for this. Takes tramadol at home but states this has not been helpful. Follows with
[place] for pain management. SHe reports she is planning to have a laser treatment with him soon but does not have a date. Pain today is her typical pain. No radiation of pain, no weakness in extremities, no bowel or bladder issues, no saddle
paresthesia. Denies fever/chills, recent illness States she has been treated in the past with dilaudid and steroids with improvement. Brought to ED by spouse.
Past History
Past History
ED Past Medical History: Asthma, GERD, HTN, Hypercholesterolemia and Other (Renal colic, bleeding diverticuli, kidney stones, cholelithiasis)
ED Past Surgical History: Gynecological, Orthopedic, Urological (Ureteric stent placed June 2014, again 2020) and Other (MOHS surgery to R flank (05/14/24))
Social History
Tobacco: Non-smoker
Alcohol: None
Personal:
Living: with family
Employment: Retired
Family History
Family History: Other (Noncontributory)
Review of Systems
Review of Systems
Allergies reviewed?: Yes
All Other Systems: ROS reviewed and negative except as documented in HPI and ROS
Constitutional: Reports no symptoms
EENT: Reports no symptoms
Respiratory: Reports no symptoms
Cardiac: Reports no symptoms
ABD/GI: Reports no symptoms
: Reports no symptoms
Musculoskeletal: Reports back pain (middle thoracic pain)
Skin: Reports no symptoms
Neurological: Reports no symptoms
Psychiatric: Reports no symptoms
Phy Exam
General Physical Exam
General Presentation: well appearing and mild distress
General age: appears stated age
General Skin: warm and dry
General Habitus: normal
General Mental: alert
Cardiovascular Exam
Cardiovascular Exam: regular rate/rhythm and no edema
Pulmonary Exam
Pulmonary Exam: lungs clear and no respiratory distress
Gastrointestinal Exam
Gastrointestinal Exam: non tender, soft, no organomegaly, non distended and no cva tenderness
Neurological Exam
Neurological Exam: alert, oriented x3, no motor deficits, no sensory deficits and normal gait
Reflexes
Reflexes: +3: Left patellar and +3: Right patellar
Musculoskeletal Exam
Musculoskeletal Exam: full ROM and neuro vasc intact
Skin Exam
Skin Exam: normal color, warm/dry and no rash
Psychiatric Exam
Psychiatric Exam: normal mood/affect
Course
Orders/Labs/Results
Orders:
Orders
06/07/25 18:22
Dexamethasone Sod Phosphate [Decadron] 10 mg IV NOW STA
HYDROmorphone [Dilaudid] 0.5 mg IV NOW STA
Ondansetron Injectable [Zofran] 4 mg IV NOW STA
Vital Signs
Initial and Last Documented VS:
Initial Vital Signs
Temp Pulse Resp BP Pulse Ox
98.6 F 99 16 163/75 98
06/07/25 16:13 06/07/25 16:13 06/07/25 16:13 06/07/25 16:13 06/07/25 16:13
Last Documented Vital Signs
Temp Pulse Resp BP Pulse Ox
98.6 F 82 18 150/77 95
06/07/25 16:13 06/07/25 20:00 06/07/25 19:30 06/07/25 20:00 06/07/25 20:00
*Pulse Oximetry
SaO2: 99
Oxygen Mode of Delivery: Room air
Patient hypoxic: no
*Critical Care Note
Total Time (30-74mins, 75-104mins- exclusive of procedures): Not Applicable
Update Note
Update Note:
Patient to ED with complaint of pain to mid thoracic back. This is a chronic issue for her. Pain is her typical pain, does not radiate, worse with movement. No associated symptoms. Cse discussed with dr. wang. WIll hold off on further imaging
and labs at this time. SHe was treated for her pain in ED and discharged home. WIll followup with Pain Management on Monday. Rx for prednisone sent to her pharmacy. SHe was given instructions on s/s to return to ED and she is agreeable toplan
ED Attending Note
-
Portions of this chart may have been created with voice recognition software.� Occasional wrong word or��sound alike� substitutions may have occurred due to the inherent limitations of voice recognition software.
Discharge Plan
Departure
Patient Disposition: Home (Routine Discharge)
Date of Disposition: 06/07/25
Time of Disposition: 19:12
Patient with high blood pressure during this ER visit?: No
Condition: Good
Covid-19: Not Applicable
Discharge Problem:
Chronic back pain
Instructions: Back Pain
Prescriptions:
New
prednisone 10 mg Tablet
See Rx Instructions .ROUTE .COMPLEX Qty: 30 0RF
Rx Instructions:
Take By Mouth:
40 mg daily x3 days, 30 mg daily x3 days,
20 mg daily x3 days, 10 mg daily x3 days.
Referrals:
Juancarlos Quesada DO [Family Provider, Family Practice]
Yosvany Wood MD [Active, Orthopedics] - Call in 1-3 days for appt
Interventions
Interventions:
*Risk Screen - Suicide Last Done: 06/07/25 17:40
*General Assessment Last Done: 06/07/25 17:40
*Neglect/Abuse Screening Last Done: 06/07/25 17:40
*ED- Fall Risk Assessment Last Done: 06/07/25 17:40
*ED COVID-19 Vaccine History Last Done: 06/07/25 17:40
*Nursing Disposition Last Done: 06/07/25 20:15
ED-Musculoskeletal Assessment Last Done: 06/07/25 17:40
Discharge Date and Time
Discharge Date/Time: 06/07/25 20:15
Print Language: LIBYAN
[2025-06-07] MEDS: ZOFRAN 4 MG IV (18:44)
[2025-06-07] MEDS: DILAUDID 0.5 MG IV (18:45)
[2025-06-07] MEDS: DECADRON 10 MG IV (18:45)
[2025-06-07 18:50] VITALS: BP 156/62
[2025-06-07 19:00] VITALS: BP 144/64
[2025-06-07 20:00] VITALS: BP 150/77
== END 2025-06-07 20:15 | disposition home or self-care (01) ==
LOC: EMR 16:12
PROVIDERS: EMERGENCY PHYSICIAN Emergency Medicine; FAMILY PHYSICIAN Family Medicine
DX: G89.29 Other chronic pain (principal); M54.6 Pain in thoracic spine; I10 Essential (primary) hypertension; E78.00 Pure hypercholesterolemia, unspecified; J45.909 Unspecified asthma, uncomplicated; K21.9 Gastro-esophageal reflux disease without esophagitis
CPT/HCPCS: 99284; 96374; 96375 ×2

== ENCOUNTER 2025-08-09 22:00 | Inpatient (IN) | payer MEDICARE, OTHER, SELFPAY ==
[2025-08-09 17:00] VITALS: BP 186/101
--- NOTE | 2025-08-09 17:21 | ED.GENMED ---
History of Present Illness
<Fortino Cuello PA-C - Last Filed: 08/09/25 17:25>
General
Chief Complaint: Flank Pain
Source: patient, records and spouse
Time Seen by Provider: 08/09/25 17:12
History of Present Illness
History of Present Illness:
79-year-old female with past medical history of chronic back pain, hyperlipidemia, diverticulitis, chronic urinary tract infections, previous kidney stones presenting to the ER for evaluation of severe pain to her left flank/lower abdomen that began
with sudden onset earlier today with symptoms described to be constant, severe, did not take anything for the pain prior to arrival and feeling similar to previous episodes of kidney stones. She states she was told by her urologist, Dr. Carcamo,
that she has a very large stone on her left side that would likely never pass but she has yet to have any intervention on the stone. Patient also follows with urogynecology due to frequent urinary tract infections. She denies any fevers, chills,
rigors, bowel or urinary frequency/urgency/dysuria or hematuria.
Past History
<Fortino Cuello PA-C - Last Filed: 08/09/25 17:25>
Past History
ED Past Medical History: Asthma, GERD, HTN, Hypercholesterolemia and Other (Renal colic, bleeding diverticuli, kidney stones, cholelithiasis)
ED Past Surgical History: Gynecological, Orthopedic, Urological (Ureteric stent placed June 2014, again 2020) and Other (MOHS surgery to R flank (05/14/24))
Social History
Tobacco: Non-smoker
Alcohol: None
Drug: None
Personal:
Living: with family
Employment: Retired
Family History
Family History: Other (Noncontributory)
Review of Systems
<GENARO Farris Last Filed: 08/09/25 17:25>
Review of Systems
All Other Systems: ROS reviewed and negative except as documented in HPI and ROS
Phy Exam
<Fortino Cuello PA-C - Last Filed: 08/09/25 17:25>
Physical Exam
Physical Exam:
GENERAL: Alert , in no apparent distress
EYE: clear conjunctiva b/l
HEAD: NCAT
ENT: o/p clr, mmm.
CARDIAC: Regular rate and rhythm .
LUNGS: Clear breath sounds bilaterally, no acute respiratory distress, no wheezes/rales/rhonchi
ABDOMEN: Soft, without focal tenderness, no r/g, mild left CVA tenderness
NEUROLOGICAL: Alert and oriented
SKIN: Warm and dry, skin intact.
MUSCULOSKELETAL: No edema, well perfused.
PSYCH: Normal and appropriate interaction.
Scores
<Fortino Cuello PA-C - Last Filed: 08/09/25 17:25>
Heart Failure Risk
Heart Failure Risk Score: Not Applicable
Heart Score for Chest Pain Patients
STEMI patient?: Not applicable
Withdrawal Assessment of Alcohol
Withdrawal Assessment Completed?: Not applicable
Course
<Fortino Cuello PA-C - Last Filed: 08/09/25 17:25>
Orders/Labs/Results
Orders:
Orders
08/09/25 17:19
0.9% Sodium Chloride 1000 ml [Nss] 1,000 ml IV BOLUS
HYDROmorphone [Dilaudid] 0.5 mg IV NOW STA
08/09/25 17:20
CT Abd/pel Without Iv Or Oral Urgent
Comment:
Reason For Exam: left flank pain, hx stones
08/09/25 17:49
Complete Blood Count/With Diff Urgent
Comprehensive Metabolic Panel Urgent
Lipase Urgent
08/09/25 18:07
Ondansetron Injectable [Zofran] 4 mg IV NOW STA
08/09/25 18:08
Ondansetron Injectable [Zofran] 4 mg .ROUTE .STK-MED ONE
08/09/25 19:02
Urinalysis Reflex To Culture Urgent
Date Specimen was Collected: 08/09/25
Time Specimen was Collected: 17:35
Urine Microscopic Reflex Cult Urgent
Urine Culture Urgent
ARYA Source: U
Specimen Description:
Date Specimen was Collected: 08/09/25
Time Specimen was Collected: 17:35
08/09/25 20:06
HYDROmorphone [Dilaudid] 1 mg IV NOW STA
08/09/25 20:34
CefTRIAXone [Rocephin] 2,000 mg IV NOW STA
08/09/25 20:39
Sterile Water [Sterile Water For Injection] 20 ml .ROUTE .STK-MED
08/09/25 20:46
Ondansetron Injectable [Zofran] 4 mg .ROUTE .STK-MED ONE
08/09/25 20:47
Ondansetron Injectable [Zofran] 4 mg IV NOW STA
Piperacillin/Tazo 3.375 Gram [Zosyn] 3.375 gram in 50 ml IV NOW
Abnormal Lab Results
08/09/25 08/09/25
17:49 19:02
RDW 23.9 H %
(11.5-14.5)
Absolute Lymphs (auto) 1.0 L 10^3/uL
(1.2-3.4)
Neutrophils % 79.3 H %
(42.2-75.2)
Lymphocytes % 12.9 L %
(20.5-51.1)
AST 46 H U/L
(14-36)
ALT 36 H U/L
(0-35)
Ur Occult Blood Reflex 1+ A
(Negative)
Urine Nitrite (Reflex) Positive A
(Negative)
Leukocyte Esterase Rfl 1+ A
(Negative)
Urine RBC 16-20 A /HPF
(0-2)
Urine WBC (Reflex) 26-30 A /HPF
(0-5)
Urine Bacteria (Reflex) Few A
(Negative)
Urine Albumin (Reflex) 1+ A
(Neg - Trace)
08/09/25 17:49
08/09/25 17:49
Vital Signs
Initial and Last Documented VS:
Initial Vital Signs
Temp Pulse Resp BP Pulse Ox
97.4 F 102 20 186/101 98
08/09/25 17:00 08/09/25 17:00 08/09/25 17:00 08/09/25 17:00 08/09/25 17:00
Last Documented Vital Signs
Temp Pulse Resp BP Pulse Ox
97.4 F 85 15 144/75 96
08/09/25 17:00 08/09/25 20:00 08/09/25 20:00 08/09/25 20:00 08/09/25 20:00
<Víctor Cevallos, DO - Last Filed: 08/09/25 21:07>
Orders/Labs/Results
Orders:
Orders
08/09/25 17:19
0.9% Sodium Chloride 1000 ml [Nss] 1,000 ml IV BOLUS
HYDROmorphone [Dilaudid] 0.5 mg IV NOW STA
08/09/25 17:20
CT Abd/pel Without Iv Or Oral Urgent
Comment:
Reason For Exam: left flank pain, hx stones
08/09/25 17:49
Complete Blood Count/With Diff Urgent
Comprehensive Metabolic Panel Urgent
Lipase Urgent
08/09/25 18:07
Ondansetron Injectable [Zofran] 4 mg IV NOW STA
08/09/25 18:08
Ondansetron Injectable [Zofran] 4 mg .ROUTE .STK-MED ONE
08/09/25 19:02
Urinalysis Reflex To Culture Urgent
Date Specimen was Collected: 08/09/25
Time Specimen was Collected: 17:35
Urine Microscopic Reflex Cult Urgent
Urine Culture Urgent
ARYA Source: U
Specimen Description:
Date Specimen was Collected: 08/09/25
Time Specimen was Collected: 17:35
08/09/25 20:06
HYDROmorphone [Dilaudid] 1 mg IV NOW STA
08/09/25 20:34
CefTRIAXone [Rocephin] 2,000 mg IV NOW STA
08/09/25 20:39
Sterile Water [Sterile Water For Injection] 20 ml .ROUTE .STK-MED
08/09/25 20:46
Ondansetron Injectable [Zofran] 4 mg .ROUTE .STK-MED ONE
08/09/25 20:47
Ondansetron Injectable [Zofran] 4 mg IV NOW STA
Piperacillin/Tazo 3.375 Gram [Zosyn] 3.375 gram in 50 ml IV NOW
Abnormal Lab Results
08/09/25 08/09/25
17:49 19:02
RDW 23.9 H %
(11.5-14.5)
Absolute Lymphs (auto) 1.0 L 10^3/uL
(1.2-3.4)
Neutrophils % 79.3 H %
(42.2-75.2)
Lymphocytes % 12.9 L %
(20.5-51.1)
AST 46 H U/L
(14-36)
ALT 36 H U/L
(0-35)
Ur Occult Blood Reflex 1+ A
(Negative)
Urine Nitrite (Reflex) Positive A
(Negative)
Leukocyte Esterase Rfl 1+ A
(Negative)
Urine RBC 16-20 A /HPF
(0-2)
Urine WBC (Reflex) 26-30 A /HPF
(0-5)
Urine Bacteria (Reflex) Few A
(Negative)
Urine Albumin (Reflex) 1+ A
(Neg - Trace)
08/09/25 17:49
08/09/25 17:49
Vital Signs
Initial and Last Documented VS:
Initial Vital Signs
Temp Pulse Resp BP Pulse Ox
97.4 F 102 20 186/101 98
08/09/25 17:00 08/09/25 17:00 08/09/25 17:00 08/09/25 17:00 08/09/25 17:00
Last Documented Vital Signs
Temp Pulse Resp BP Pulse Ox
97.4 F 85 15 144/75 96
08/09/25 17:00 08/09/25 20:00 08/09/25 20:00 08/09/25 20:00 08/09/25 20:00
<Fortino Cuello PA-C - Last Filed: 08/09/25 17:25>
MDM/Problems Addressed
Differential Diagnosis Includes:
Renal/Ureteral colic
Diverticulitis
Muscular pain
Hernia
GERD/Gastritis
Dissection
Colitis
UTI
MDM/Problems Addressed:
79-year-old female presenting to the ER for evaluation of left flank pain that began today similar to previous episodes of kidney stones. No fevers or infectious symptoms. Overall does not appear to be in any significant distress, hemodynamically
stable. She did have a CT scan done here in December of this year which showed bilateral kidney stones with the largest on the left side measuring 1 cm. Will check labs, urine, CT imaging. Fluids and Dilaudid ordered for symptomatic relief.
Disposition pending
Chronic conditions affecting care: Other (Previous kidney stones)
<Fortino Cuello PA-C - Last Filed: 08/09/25 17:25>
*Pulse Oximetry
SaO2: 98
Oxygen Mode of Delivery: Room air
Patient hypoxic: no
Data Reviewed
Review of Other/Old Records Reveals: Labs, Records and Radiology Studies
<Víctor Cevallos DO - Last Filed: 08/09/25 21:07>
*Critical Care Note
Total Time (30-74mins, 75-104mins- exclusive of procedures): Not Applicable
Data Reviewed
Review of Other/Old Records Reveals: Labs (Cultures reviewed from July 2021. See below)
<Víctor Cevallos DO - Last Filed: 08/09/25 21:07>
Patient Management
Discussion with other providers: Hospitalist, Re Recording Mixer (Urology) and Radiologist (Dr. Oconnor)
ED Attending Note
<Fortino Cuello PA-C - Last Filed: 08/09/25 17:25>
-
Portions of this chart may have been created with voice recognition software.� Occasional wrong word or��sound alike� substitutions may have occurred due to the inherent limitations of voice recognition software.
<Víctor Cevallos DO - Last Filed: 08/09/25 21:07>
ED Attending Note
Patient seen and examined by attending physician: Yes
I performed the substantive portion of visit, reviewed & personally made and approve the management plan that is documented in note by myself or OLLIE.: Yes
ED Attending Note:
79-year-old female presents with flank pain. Pain does persist to a mild degree. Still nauseous on reassessment. CT shows a 3 mm stone in the right ureter. There is a left renal stone that radiology does not suspect is obstructing.
Interestingly her pain is on the left. Case discussed with radiology. Old records reviewed including previous cultures. Patient has a history of Proteus as well as E. coli. Based on previous cultures, Zosyn will cover both organisms. Urinalysis
does show positive nitrite and 1+ leuk esterase. Her previous urinalysis also looks similar but she has grown out E. coli on almost all of her previous cultures. In light of her stones and findings, discussed with urology. Agrees with IV
antibiotics and admission. Continue with pain control. Patient is afebrile. White count normal. Creatinine okay
Discharge Plan
Departure
Prescriptions:
No Action
prednisone 10 mg Tablet
See Rx Instructions .ROUTE .COMPLEX Qty: 30 0RF
Rx Instructions:
Take By Mouth:
40 mg daily x3 days, 30 mg daily x3 days,
20 mg daily x3 days, 10 mg daily x3 days.
Referrals:
Juancarlos Quesada DO [Family Provider, Family Practice]
Interventions
Interventions:
*Risk Screen - Suicide Last Done: 08/09/25 20:10
*General Assessment Last Done: 08/09/25 20:10
*Neglect/Abuse Screening Last Done: 08/09/25 20:10
*ED- Fall Risk Assessment Last Done: 08/09/25 20:10
*ED COVID-19 Vaccine History Last Done: 08/09/25 20:10
*ED Influenza Vaccine History Last Done: 08/09/25 20:10
BD-Zygtcm-Qgtaxwlhgx Assessment Last Done: 08/09/25 20:07
ED-Female Genitourinary Assessment Last Done: 08/09/25 20:07
Discharge Date and Time
Print Language: NORTHER[place] IRISH
[2025-08-09] MEDS: NSS 1000 IV ×2 (18:04→23:09)
[2025-08-09] MEDS: DILAUDID 0.5 MG IV (18:09)
[2025-08-09] MEDS: ZOFRAN 4 MG IV ×2 (18:09→20:50)
[2025-08-09 18:19] LABS: Hematocrit 39.7 % (37.0-47.0); Hemoglobin 13.4 g/dL (12.0-16.0); Mean Corp Hgb Conc. 33.8 g/dL (33.0-37.0); Mean Corpuscular Volume 81.5 fL (81.0-99.0); Nucleated Red Blood Cells % 0 %; Platelet Count 227 10^3/uL (130-400); Red Cell Dist. Width 23.9 % (11.5-14.5)
[2025-08-09 18:30] LABS: ALT (SGPT) 36 U/L (0-35); AST (SGOT) 46 U/L (14-36); Albumin 4.4 g/dl (3.5-5.0); Alkaline Phosphatase 78 U/L (38-126); Blood Urea Nitrogen 17 mg/dl (7-17); Calcium 9.6 mg/dl (8.4-10.2); Carbon Dioxide 28 mmol/L (22-30); Chloride 104 mmol/L (98-107); Glucose 92 mg/dl (70-99); Lipase 137 U/L (23-300); Potassium 4.5 mmol/L (3.5-5.1); Sodium 135 mmol/L (135-145); Total Protein 7.5 g/dl (6.3-8.2); eGFR > 60.00
[2025-08-09 19:00] VITALS: BP 147/74
[2025-08-09 19:13] LABS: Urine Character Clear (Clear)
[2025-08-09 19:20] LABS: Urine Squamous Cell 16-20 /LPF (Few)
[2025-08-09 19:24] LABS: Urine Red Blood Cell 16-20 /HPF (0-2); Urine White Cell 26-30 /HPF (0-5)
[2025-08-09 20:00] VITALS: BP 144/75
[2025-08-09] MEDS: DILAUDID 1 MG IV (20:17)
[2025-08-09] MEDS: ZOSYN 50 IV (20:50)
--- NOTE | 2025-08-09 21:52 | HPS.HSE ---
Family Physician
-
Family Physician: Juancarlos Quesada
Chief Complaint
-
Flank Pain / Abdominal Pain
History of Present Illness
Patient is an 79y F with PMH significant for nephrolithiasis who presents to ED complaining of left-sided flank pain and abdominal pain since this AM. Patient states that she felt 'off' yesterday - but cannot be more specific. Today she
developed flank pain and abdominal fullness and noted that symptoms were similar to prior kidney stones that she has had in the past. Patient took a dose of cephalexin at home today and presented to the ED for further evaluation.
After receiving pain medication and IV abx in the ED, patient developed nausea and has had few episodes of small volume, non-bloody emesis and dry heaves.
No fevers / chills.
Medical History
Past Medical History
Past Medical History: Reports Other
Additional Past Medical History:
Polymyalgia Rheumatica
GERD
Nephrolithiasis
Rosacea
Past Surgical History: Reports Other
Additional Past Surgical History:
Ureteroscopy / Stent
Hernia Repair
Abdominoplasty
Right TKA
Bilateral PATRICK
Social History
Tobacco: Non-smoker
Alcohol: None
Drug: None
Family History
Family History: Not pertinent
Allergies / Home Medications
Allergies reflects when Allergies were last updated in [facility].
Home Medications with original date entered in [facility]
Allergy/Medication List:
Allergies
Allergy/AdvReac Type Severity Reaction Status Date / Time
Sulfa (Sulfonamide AdvReac pt reports Verified 08/09/25 17:03
Antibiotics) that she
has had
sulfa
drugs
without
problem
Home Medications
esomeprazole magnesium 40 mg capsule,delayed release (Nexium) 40 mg PO DAILY 08/09/25
ezetimibe 10 mg tablet 10 mg PO DAILY 08/09/25
polyethylene glycol 3350 17 gram oral powder packet (Miralax) 17 g PO DAILY PRN constipation 08/09/25
Review of Systems
-
History Source: Patient
A 12 point ROS was completed and negative except as noted: Yes
Constitutional: Denies Fever or Chills
Respiratory: Denies Cough or Trouble Breathing
Cardiac: Denies Chest Pain or Palpitations
Abdomen/GI: Reports Abdominal Pain, Nausea and Vomiting; Denies Diarrhea or Constipated
: Reports Flank Pain and Dark Urine; Denies Dysuria or Frequency
Neurological: Denies Dizzy or Headache
Physical Exam
Vital Signs
Vital Signs
Temp Pulse Resp BP Pulse Ox
97.4 F 85 15 144/75 96
08/09/25 17:00 08/09/25 20:00 08/09/25 20:00 08/09/25 20:00 08/09/25 20:00
Physical Exam
General: Other (79y F in mild distress due to nausea / pain.)
HEENT: Moist mucous membranes, PERRLA and Other (Thick neck.)
Respiratory: Clear; No Wheezes, Rales or Rhonchi
Cardiac: S1/S2 and Regular Rhythm; No Murmur
GI: Other (Softly distended, BS present, tenderness with voluntary guarding across lower abdomen.)
Genito-urinary: Costovertebral angle tend (LEFT)
Musculoskeletal: No Clubbing, No Cyanosis and No Edema
Neuro: AO x 3
Laboratory Results
-
08/09/25 17:49
08/09/25 17:49
Laboratory Results
Total Bilirubin 0.8 mg/dl (0.2-1.3) 08/09/25 17:49
AST 46 U/L (14-36) H 08/09/25 17:49
ALT 36 U/L (0-35) H 08/09/25 17:49
Alkaline Phosphatase 78 U/L (38-126) 08/09/25 17:49
Lipase 137 U/L (23-300) 08/09/25 17:49
Impression/Plan
-
A/P: Patient is an 79y F with PMH significant for nephrolithiasis and polymyalgia who presents to ED complaining of L flank pain and abdominal fullness that started this AM.
Ureterolithiasis
UTI
- Admit for further evaluation and treatment.
- CT done in the ED today shows small (0.2-0.3cm) mid ureteral stone on the RIGHT with minimal associated hydro.
- UA suggestive of possible infection.
- NPO, IVFs, tamsulosin and IV abx pending culture data.
- Urology evaluation for additional recommendations / intervention if needed.
Left Flank Pain
- Laterality of presenting pain is not consistent with stone. ? more distal stone on the L obscured by hip prosthesis / streak effect (though no significant proximal hydro).
- Left pelvic cyst noted - but unchanged from prior imaging studies.
- Intra-renal / pelvis stone noted on the L (chronic) - but does not appear to be obstructing / should not be causing symptoms.
- Supportive care, pain control, antiemetics, etc.
- Urology eval as noted above.
GERD
- Continue daily PPI.
DVT Prophylaxis: SCDs
Code Status: Full
[2025-08-09] MEDS: COMPAZINE 5 MG IV (23:06)
[2025-08-09] MEDS: FLUSH (NSS) 2 FLUSH IV (23:08)
[2025-08-09 23:38] VITALS: BP 134/77; BMI 37.7
--- NOTE | 2025-08-09 23:45 | PTCARENOTE ---
Received patient from ED accompanied by spouse. Patient ambulated to the bedside with one assist. Patient AAOx3, assessed, nauseous -medicated with Compazine, VSS, oriented to the unit. Patient verbalized an understanding to ring for all transfers.
Call tello in reach.
[2025-08-10] MEDS: ROCEPHIN 1000 MG IV ×2 (00:09→23:10)
[2025-08-10] MEDS: STERILE WATER FOR INJECTION 10 ML IV ×2 (00:09→23:10)
[2025-08-10] MEDS: ZOFRAN 4 MG IV (05:54)
[2025-08-10] MEDS: DILAUDID 0.5 MG IV ×2 (06:23→10:08)
[2025-08-10 06:31] LABS: Hematocrit 37.4 % (37.0-47.0); Hemoglobin 12.0 g/dL (12.0-16.0); Mean Corp Hgb Conc. 32.1 g/dL (33.0-37.0); Mean Corpuscular Volume 84.8 fL (81.0-99.0); Platelet Count 208 10^3/uL (130-400); Red Cell Dist. Width 23.7 % (11.5-14.5)
[2025-08-10 06:42] LABS: Blood Urea Nitrogen 15 mg/dl (7-17); Calcium 9.0 mg/dl (8.4-10.2); Carbon Dioxide 27 mmol/L (22-30); Chloride 106 mmol/L (98-107); Estimated Creatinine Clearance 50 ml/min; Glucose 101 mg/dl (70-99); HDL Cholesterol 28 mg/dl; LDL Cholesterol, Calculated 136 mg/dl; Potassium 4.4 mmol/L (3.5-5.1); Sodium 140 mmol/L (135-145); Very Low Density Lipoprotein 41 mg/dl (0-30); eGFR 56.60
[2025-08-10 07:57] VITALS: BP 131/61
[2025-08-10] MEDS: NSS (PRESERVATIVE FREE) 10 ML IV ×2 (09:17→09:18)
--- NOTE | 2025-08-10 09:17 | W.PN.HOSP.TC ---
Today's Communication/Plan
-
see bold
Assessment / Plan
Assessment / Plan
79y F with PMH significant for nephrolithiasis and polymyalgia who presents to ED complaining of L flank pain and abdominal fullness that started this AM.
Right ureterolithiasis
UTI
- CT done in the ED today shows small (0.2-0.3cm) mid ureteral stone on the RIGHT with minimal associated hydro.
- UA suggestive of possible infection.
- Appreciate urology input, continue IV fluids, Flomax, await passage of right ureteral stone
- Continue IV Rocephin D2, follow-up on urine cultures
- Urology recommends outpatient follow-up with Dr. Carcamo, plan for patient to get KUB/renal US prior to next urology visit to monitor R ureteral stone/R hydro
Left Flank Pain
- Laterality of presenting pain is not consistent with stone. ? more distal stone on the L obscured by hip prosthesis / streak effect (though no significant proximal hydro).
- Left pelvic cyst noted - but unchanged from prior imaging studies.
- Intra-renal / pelvis stone noted on the L (chronic) - but does not appear to be obstructing / should not be causing symptoms.
- Seen by urology, differential diagnoses include GI, Technology Manager, UTI-related
- Continue supportive care for now, if pain does not improve tomorrow, recommend CT abdomen and pelvis with IV and p.o. contrast
GERD
- Continue daily PPI.
Dry heaving
- Antiemetics as needed, EKG ordered for QTc monitoring
DVT Prophylaxis: SQ lovenox
Code Status: Full
Updated at bedside 08/10
Physical Exam
General: Obese, no acute distress
HEENT: Normocephalic, Atraumatic, EOMI, MMM
Respiratory: Clear to Auscultation bilaterally
Cardiac: Normal S1/S2, Regular Rate and Rhythm
GI: Soft, Nontender, Nondistended, Normal Bowel Sounds
Extremities: No Clubbing, Cyanosis, or Edema
Neuro: Nonfocal/Grossly Intact
Psych: Calm, Cooperative
Anticipated Discharge: 24 - 48 hours
Subjective/Interval History
-
Date of Service: August 10, 2025
Patient complains of severe left-sided lower quadrant pain, 10 out of 10 in intensity, after receiving her IV Dilaudid 2 hours ago. She reports dry heaving. Denies chest pain, denies shortness of breath. No fever.
Objective Data
-
Labs:
Laboratory Results
08/10/25
05:51
WBC 7.3
Hgb 12.0
Hct 37.4
Plt Count 208
Sodium 140
Potassium 4.4
Chloride 106
Carbon Dioxide 27
BUN 15
Creatinine 1.0
Glucose 101 H
Calcium 9.0
Vital Signs:
Vital Signs
Temp Pulse Resp BP Pulse Ox
97.7 F 66 18 131/61 95
08/10/25 07:57 08/10/25 07:57 08/10/25 07:57 08/10/25 07:57 08/10/25 07:57
I&O
08/09/25 08/10/25 08/11/25
06:59 06:59 06:59
Intake Total 700 / 700
Output Total 200 / 200
Balance 500 / 500
[2025-08-10] MEDS: PROTONIX IV 40 MG IV (09:18)
[2025-08-10] MEDS: FLUSH (NSS) 2 FLUSH IV ×2 (09:19→13:21)
[2025-08-10] MEDS: FLOMAX PO ×2 (09:19→13:25)
[2025-08-10] MEDS: NSS 1000 IV ×2 (09:24→17:06)
[2025-08-10] MEDS: COMPAZINE 5 MG IV (09:26)
--- NOTE | 2025-08-10 10:10 | W.PN.URO.CBU ---
Diagnosis
-
Date of Service: August 10, 2025
-
Patient Diagnosis:
Post Op Day:
Objective
-
Vital Signs
Temp Pulse Resp BP Pulse Ox
97.7 F 66 18 131/61 95
08/10/25 07:57 08/10/25 07:57 08/10/25 07:57 08/10/25 07:57 08/10/25 07:57
Intake and Output
08/09/25 08/10/25 08/11/25
06:59 06:59 06:59
Intake Total 700 / 700
Output Total 200 / 200
Balance 500 / 500
Intake:
IV fluids (Total) 700 / 700
Output:
Urine, Voided 200 / 200
Other:
Number of approximated MODERATE 1
amounts of urine
Laboratory Results
08/10/25 05:51
08/10/25 05:51
Physical Exam
-
General - well developed, well nourished, no acute distress
Chest - clear bilaterally
Abdomen - soft, non-tender, positive bowel sounds, no CVAT, no incisional pain or distention
Genitalia - normal
Rectal - normal
Skin - warm & dry with no rash
Neuro - AOx3, no motor deficits
Extremities - no clubbing, no cyanosis, no edema
Incision - clean, dry
Dressing - clean, dry, intact
--- NOTE | 2025-08-10 10:12 | CONS.URO ---
Addendum entered and electronically signed by Kalina Whitney MD 08/10/25 10:49:
WBC normal and urine pending. Hx chronic UTIs and has grown E.Coli multiple times previously
No concern for septic stone, however would send patient home with a few days of culture-specific abx based off prior cultures
Return precautions include fevers/chills, malaise
Original Note:
Consultation
-
Date/Time Consultation Performed: 08/10/25, 8:00AM
Performing Provider: Chelo
Reason for Consultation: Nephrolithiasis
Medical History
History of Present Illness
79F with hx chronic/recurring UTIs followed with Dr. Herrera and nephrolithiasis followed by Dr. Carcamo who presented to the ER last night with LLQ pain.
Reports the pain is LLQ focal and sometimes will move to the left but not necessarily the flank or back. Pain will come and go and occasionally improves with position.
No other associated symptoms like pain after eating.
She believes she had a BERTRAM/BSO
Denies any right sided pain. States the dilaudid is helping.
Denies fevers/chills. Mild nausea, no vomiting. Denies urinary sx
States this feels like a prior kidney stone episode -- last stone procedure was [address] Carcamo
Allergies/Home Medications
Allergies
Allergy/AdvReac Type Severity Reaction Status Date / Time
Sulfa (Sulfonamide AdvReac pt reports Verified 08/09/25 17:03
Antibiotics) that she
has had
sulfa
drugs
without
problem
Home Medications
�Medication �Instructions �Recorded �Confirmed �Type
esomeprazole magnesium 40 mg 40 mg PO DAILY GERD 08/09/25 08/09/25 History
capsule,delayed release (Nexium)
ezetimibe 10 mg tablet 10 mg PO DAILY High Cholesterol 08/09/25 08/09/25 History
polyethylene glycol 3350 17 gram 17 g PO DAILY PRN constipation 08/09/25 08/09/25 History
oral powder packet (Miralax)
Physical Exam
Vital Signs
Vital Signs
Temp Pulse Resp BP Pulse Ox
97.7 F 66 18 131/61 95
08/10/25 07:57 08/10/25 07:57 08/10/25 07:57 08/10/25 07:57 08/10/25 07:57
Lab / Testing Results
Laboratory Results
08/10/25 05:51
08/10/25 05:51
Physical Exam
General: Well Developed, Well Nourished and No Apparent Distress
Respiratory: Clear
GI: Soft, Non Tender and Non Distended
Skin: Warm and Dry
Assessment / Plan
-
79F with hx chronic/recurring UTIs followed with Dr. Herrera and nephrolithiasis followed by Dr. Carcamo who presented to the ER last night with LLQ pain.
CT A/P without contrast shows stable L renal stone, no hydronephrosis or hydroureter. Despite hip artifact, I am able to trace the ureter down to the bladder and there are no left ureteral stones
There is a small 2-3 mm mid right ureteral stone with mild R hydronephrosis
Patient is asymptomatic on the right
Plan:
- Discussed etiologies of focal LLQ pain including GI, Credit Collections Clerk, UTI-related. Her CT scan findings were reviewed as well. Discussed there is no left hydroureteronephrosis, no left ureteral stones. There is a stable stone in the left upper pole. No right
sided pain
- She is not having right sided pain and therefore would like a trial of stone passage on the right with flomax and fluids which I agree is reasonable - send patient home with flomax 0.4 mg for medical expulsive therapy and urine strainer
- Informed her that stenting the left kidney likely will not relieve her pain given her symptoms are not aligned with renal colic and there are no signs of left renal/ureteral obstruction on imaging
- No urologic intervention required at this time
- Will ultimately need OP follow up with Dr. Carcamo for management of stone disease -- plan for patient to get KUB/renal US prior to next urology visit to monitor R ureteral stone/R hydro. These scans were ordered by Dr. Herrera
Data Reviewed
-
CT Scan: Image personally visualized and interpreted
Lab Data: Labs Reviewed
Old Records: Reviewed
[2025-08-10] MEDS: TORADOL 30 MG IV (13:20)
[2025-08-10 15:29] VITALS: BP 136/60
--- NOTE | 2025-08-10 15:34 | CM ---
CM met with pt and spouse
They reside in a [address] with 3 [address]BE[address], 17 steps to second floor
Pt is independent with her ADLs, no ADs, drives+
Has a WW and SPC for use if needed
Has hx with outpt PT at [facility]
PCP- Juancarlos Quesada
Rx- [facility]
Discharge Disposition- home, watch for VN
[2025-08-10] MEDS: LOVENOX 40 MG SC (17:05)
[2025-08-10] MEDS: SENOKOT-S 2 TABLET PO (20:29)
[2025-08-10 23:45] VITALS: BP 135/68
[2025-08-11] MEDS: NSS 1000 IV (05:36)
[2025-08-11 07:50] VITALS: BP 162/73
[2025-08-11] MEDS: FLOMAX 0.4 MG PO (08:08)
[2025-08-11] MEDS: MIRALAX 17 GRAMS PO (08:08)
[2025-08-11] MEDS: PROTONIX IV 40 MG IV (08:08)
[2025-08-11] MEDS: SENOKOT-S PO (08:18)
[2025-08-11] MEDS: NSS (PRESERVATIVE FREE) 10 ML IV (08:34)
[2025-08-11 09:20] LABS: Hematocrit 41.5 % (37.0-47.0); Hemoglobin 12.8 g/dL (12.0-16.0); Mean Corp Hgb Conc. 30.8 g/dL (33.0-37.0); Mean Corpuscular Volume 89.8 fL (81.0-99.0); Platelet Count 191 10^3/uL (130-400); Red Cell Dist. Width 24.0 % (11.5-14.5)
[2025-08-11 11:59] LABS: Blood Urea Nitrogen 10 mg/dl (7-17); Calcium 9.1 mg/dl (8.4-10.2); Carbon Dioxide 26 mmol/L (22-30); Chloride 108 mmol/L (98-107); Estimated Creatinine Clearance 45 ml/min; Glucose 76 mg/dl (70-99); Magnesium 2.0 mg/dl (1.6-2.3); Potassium 3.9 mmol/L (3.5-5.1); Sodium 140 mmol/L (135-145); eGFR 50.48
--- NOTE | 2025-08-11 12:01 | CM ---
MD entered order for discharge.
Spoke with patient in room she said she was ready for discharge.
IMM given explained signed on chart.
Will will drive her home.
Offered VN she declined need.
PLAN Home no needs
[2025-08-11 12:22] VITALS: BP 144/77
--- NOTE | 2025-08-11 13:02 | W.DS.TRANS ---
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
-
Discharge Instructions:
Discharge Diagnosis/Procedures Musculoskeletal pain at the LLQ
Bilateral asymptomatic nephrolithiasis
Diet Regular
Instructions:
Stand-Alone Forms:
Changes to Home Medications: No
Discharge Medications:
DC Medications w/original date entered in [facility]
esomeprazole magnesium 40 mg capsule,delayed release (Nexium) 40 mg PO DAILY GERD 08/09/25
ezetimibe 10 mg tablet 10 mg PO DAILY High Cholesterol 08/09/25
polyethylene glycol 3350 17 gram oral powder packet (Miralax) 17 g PO DAILY PRN constipation 08/09/25
tamsulosin 0.4 mg capsule 0.4 mg PO DAILY #30 caps 08/11/25
Home Medication Changes
Pending Results: No
== END 2025-08-11 12:39 | disposition home or self-care (01) | DRG 694 ==
LOC: 2 NORTH 22:00
PROVIDERS: Family Medicine; Physician Assistant Medical; ADMITTING PHYSICIAN Hospitalist; ATTENDING PHYSICIAN Internal Medicine; CONSULT PHYSICIAN Student in an Organized Health Care Education/Training Program; EMERGENCY PHYSICIAN Emergency Medicine; FAMILY PHYSICIAN Family Medicine
DX: N20.2 Calculus of kidney with calculus of ureter (principal); K21.9 Gastro-esophageal reflux disease without esophagitis; Z87.440 Personal history of urinary (tract) infections; Z87.442 Personal history of urinary calculi; L71.9 Rosacea, unspecified; M35.3 Polymyalgia rheumatica; E78.00 Pure hypercholesterolemia, unspecified; I10 Essential (primary) hypertension; J45.909 Unspecified asthma, uncomplicated; Z96.651 Presence of right artificial knee joint; G89.29 Other chronic pain
CPT/HCPCS: 74176; 80048; 80053; 80061; 81003; 81015; 83690; 83735; 85025; 85027; 87086; 93005; 96365; 96375; 96376; 99284

== ENCOUNTER 2025-08-22 12:50 | Inpatient (IN) | payer MEDICARE, OTHER, SELFPAY ==
[2025-08-22] VITALS (10 sets, daily range): BP systolic 124–191; BP diastolic 59–88; BMI 36.8; BMI 33.9; BMI 37.1
--- NOTE | 2025-08-22 07:19 | ED.GENMED ---
History of Present Illness
<Radha Godinez PA-C - Last Filed: 08/22/25 15:14>
General
Chief Complaint: Flank Pain
Source: patient
Exam Limitations: none
Time Seen by Provider: 08/22/25 07:05
Nursing documentation reviewed up to this point in time: agreed with
History of Present Illness
History of Present Illness:
SEE mdm
Past History
<GENARO Hernandez Last Filed: 08/22/25 15:14>
Past History
ED Past Medical History: Asthma, GERD, HTN, Hypercholesterolemia and Other (Renal colic, bleeding diverticuli, kidney stones, cholelithiasis)
ED Past Surgical History: Gynecological, Orthopedic, Urological (Ureteric stent placed June 2014, again 2020) and Other (MOHS surgery to R flank (05/14/24))
Social History
Tobacco: Non-smoker
Alcohol: None
Drug: None
Personal:
Living: with family
Employment: Retired
Family History
Family History: Other (Noncontributory)
Phy Exam
<GENARO Hernandez Last Filed: 08/22/25 15:14>
Physical Exam
Physical Exam:
GENERAL: Alert, uncomfortable dry heaving
Neck: supple
CARDIAC: Regular rate and rhythm .
LUNGS: Clear breath sounds bilaterally, no acute respiratory distress, no wheezes/rales/rhonchi
ABDOMEN: Soft, normal bowel sounds, nondistended, no abdominal tenderness, no guarding, no rebound, neg wallace's
NEUROLOGICAL: Alert and oriented, no focal neuro deficits
SKIN: Warm and dry, skin intact.
PSYCH: Normal and appropriate interaction.
Course
<GENARO Hernandez Last Filed: 08/22/25 15:14>
Orders/Labs/Results
Orders:
Orders
08/22/25 07:17
0.9% Sodium Chloride 1000 ml [Nss] 1,000 ml IV BOLUS
HYDROmorphone [Dilaudid] 0.5 mg IV NOW STA
Ondansetron Injectable [Zofran] 4 mg IV NOW STA
08/22/25 07:19
Complete Blood Count/With Diff Urgent
Comprehensive Metabolic Panel Urgent
Lipase Urgent
08/22/25 07:20
Urinalysis Reflex To Culture Urgent
Date Specimen was Collected: 08/22/25
Time Specimen was Collected: 07:19
Urine Microscopic Reflex Cult Urgent
Urine Culture Urgent
ARYA Source: U
Specimen Description:
Date Specimen was Collected: 08/22/25
Time Specimen was Collected: 07:19
08/22/25 07:46
CT Abd/pel Without Iv Or Oral Urgent
Comment:
Reason For Exam: sudden R flank pain
08/22/25 09:24
CT Abd/Pel (IV only)-DH only Urgent
Comment:
Reason For Exam: w delayed images; per urology
08/22/25 11:36
CefTRIAXone [Rocephin] 1,000 mg IV NOW STA
Ketorolac [Toradol] 15 mg IV NOW STA
08/22/25 12:36
Admit/Transfer Patient As Directed
Co-Sign Provider:
Level of Care: Inpatient admission
Assign to:: Medical/Surgical
Physician / Group: gage
Diagnosis: ureteral stone
Reason for Hospitalization: ureteral stone
Expected length of stay greater than two midnights?: Yes
ELOS- Estimated Length of Stay in days: 3
I certify the patient meets the requirements for IP care: Yes
08/22/25 12:37
Code Status As Directed
Resuscitation Status: Full Code
PRN Pain Medication Management As Directed
May give lesser potent ordered pain med per pt: Yes
preference::
Protocol:: Medication orders for pain may be administered in a
manner that supports deferring to patient preference
when the pt is:
- Requesting an ordered lesser potent pain medication.
Least to most potent pain medications are defined
as: acetaminophen < NSAID < tramadol < opioids
(morphine, oxycodone, hydromorphone).
- Requesting a lesser dose of the same medication IF
ORDERED.
- Requesting a less intrusive route of administration
if both routes are prescribed by the provider (PO <
IV).
Abnormal Lab Results
08/22/25 08/22/25
07:19 07:20
RDW 20.9 H %
(11.5-14.5)
Absolute Neuts (auto) 6.9 H 10^3/uL
(1.4-6.5)
Absolute Lymphs (auto) 0.9 L 10^3/uL
(1.2-3.4)
Neutrophils % 83.7 H %
(42.2-75.2)
Lymphocytes % 10.5 L %
(20.5-51.1)
Chloride 108 H mmol/L
(98-107)
BUN 18 H mg/dl
(7-17)
Glucose 185 H mg/dl
(70-99)
Ur Occult Blood Reflex 4+ A
(Negative)
Urine Nitrite (Reflex) Positive A
(Negative)
Urine Bilirubin 2+ A
(Negative)
Urine Urobilinogen 3+ A
(Neg - 1+)
Leukocyte Esterase Rfl 1+ A
(Negative)
Urine RBC 90-100 A /HPF
(0-2)
Urine Bacteria (Reflex) Moderate A
(Negative)
Urine Yeast Few A
(Negative)
Urine Albumin (Reflex) 2+ A
(Neg - Trace)
08/22/25 07:19
08/22/25 07:19
Vital Signs
Initial and Last Documented VS:
Initial Vital Signs
Pulse Resp BP Pulse Ox
57 22 183/88 100
08/22/25 06:46 08/22/25 06:46 08/22/25 06:46 08/22/25 06:46
Last Documented Vital Signs
Temp Pulse Resp BP Pulse Ox
36.7 C 65 14 124/76 99
08/22/25 07:35 08/22/25 12:00 08/22/25 12:00 08/22/25 12:00 08/22/25 12:00
<Adeline Mendenhall, DO - Last Filed: 08/22/25 13:19>
Orders/Labs/Results
Orders:
Orders
08/22/25 07:17
0.9% Sodium Chloride 1000 ml [Nss] 1,000 ml IV BOLUS
HYDROmorphone [Dilaudid] 0.5 mg IV NOW STA
Ondansetron Injectable [Zofran] 4 mg IV NOW STA
08/22/25 07:19
Complete Blood Count/With Diff Urgent
Comprehensive Metabolic Panel Urgent
Lipase Urgent
08/22/25 07:20
Urinalysis Reflex To Culture Urgent
Date Specimen was Collected: 08/22/25
Time Specimen was Collected: 07:19
Urine Microscopic Reflex Cult Urgent
Urine Culture Urgent
ARYA Source: U
Specimen Description:
Date Specimen was Collected: 08/22/25
Time Specimen was Collected: 07:19
08/22/25 07:46
CT Abd/pel Without Iv Or Oral Urgent
Comment:
Reason For Exam: sudden R flank pain
08/22/25 09:24
CT Abd/Pel (IV only)-DH only Urgent
Comment:
Reason For Exam: w delayed images; per urology
08/22/25 11:36
CefTRIAXone [Rocephin] 1,000 mg IV NOW STA
Ketorolac [Toradol] 15 mg IV NOW STA
08/22/25 12:36
Admit/Transfer Patient As Directed
Co-Sign Provider:
Level of Care: Inpatient admission
Assign to:: Medical/Surgical
Physician / Group: gage
Diagnosis: ureteral stone
Reason for Hospitalization: ureteral stone
Expected length of stay greater than two midnights?: Yes
ELOS- Estimated Length of Stay in days: 3
I certify the patient meets the requirements for IP care: Yes
08/22/25 12:37
Code Status As Directed
Resuscitation Status: Full Code
PRN Pain Medication Management As Directed
May give lesser potent ordered pain med per pt: Yes
preference::
Protocol:: Medication orders for pain may be administered in a
manner that supports deferring to patient preference
when the pt is:
- Requesting an ordered lesser potent pain medication.
Least to most potent pain medications are defined
as: acetaminophen < NSAID < tramadol < opioids
(morphine, oxycodone, hydromorphone).
- Requesting a lesser dose of the same medication IF
ORDERED.
- Requesting a less intrusive route of administration
if both routes are prescribed by the provider (PO <
IV).
Abnormal Lab Results
08/22/25 08/22/25
07:19 07:20
RDW 20.9 H %
(11.5-14.5)
Absolute Neuts (auto) 6.9 H 10^3/uL
(1.4-6.5)
Absolute Lymphs (auto) 0.9 L 10^3/uL
(1.2-3.4)
Neutrophils % 83.7 H %
(42.2-75.2)
Lymphocytes % 10.5 L %
(20.5-51.1)
Chloride 108 H mmol/L
(98-107)
BUN 18 H mg/dl
(7-17)
Glucose 185 H mg/dl
(70-99)
Ur Occult Blood Reflex 4+ A
(Negative)
Urine Nitrite (Reflex) Positive A
(Negative)
Urine Bilirubin 2+ A
(Negative)
Urine Urobilinogen 3+ A
(Neg - 1+)
Leukocyte Esterase Rfl 1+ A
(Negative)
Urine RBC 90-100 A /HPF
(0-2)
Urine Bacteria (Reflex) Moderate A
(Negative)
Urine Yeast Few A
(Negative)
Urine Albumin (Reflex) 2+ A
(Neg - Trace)
08/22/25 07:19
08/22/25 07:19
Vital Signs
Initial and Last Documented VS:
Initial Vital Signs
Pulse Resp BP Pulse Ox
57 22 183/88 100
08/22/25 06:46 08/22/25 06:46 08/22/25 06:46 08/22/25 06:46
Last Documented Vital Signs
Temp Pulse Resp BP Pulse Ox
36.7 C 65 14 124/76 99
08/22/25 07:35 08/22/25 12:00 08/22/25 12:00 08/22/25 12:00 08/22/25 12:00
<Radha Godinez PA-C - Last Filed: 08/22/25 15:14>
MDM/Problems Addressed
Differential Diagnosis Includes:
SEE mdm
MDM/Problems Addressed:
Note:
CHIEF COMPLAINT(S)
Persistent kidney pain and vomiting.
HISTORY OF PRESENT ILLNESS
The patient is an 79-year-old female with a history of urological issues who presents with severe kidney pain that began around 9 PM the previous evening. The pain is described as similar to previous episodes related to kidney problems. The patient
has been experiencing persistent dry heaving and vomiting since the onset of pain, which has resulted in an inability to retain oral medications. She has attempted to take pain relief with oxycodone, as well as Pridium and an antibiotic, Cephalexin
500 mg, but vomited shortly after ingestion. She reports seeing a urologist who previously diagnosed her with a calcium deposit and interstitial cystitis with bladder pain. She believes the current symptoms feel identical to previous kidney issues.
PAST MEDICAL AND SURGICAL HISTORY
The patient reports having a calcium deposit diagnosed by her urologist. She has also been diagnosed with interstitial cystitis with bladder pain by a gynecological urologist.
PHYSICAL EXAM
- The patient reports tender pain localized to the kidney region.
- Vomiting and dry heaving noted.
PROBLEM LIST
Acute
- Kidney pain
- Vomiting
Chronic
- Calcium deposit (urological issue)
- Interstitial cystitis with bladder pain
PLAN
The patient noted that intravenous Dilaudid is the only pain relief that has been effective in past similar episodes, suggesting this as a potential treatment.
DIFFERENTIAL DIAGNOSIS
The Differential Diagnosis includes, in no particular order and is not limited to:
- Kidney stone
- Renal colic
- Pyelonephritis
- Urinary tract infection
- Interstitial cystitis
- Dehydration with electrolyte imbalance
- Medication-induced gastritis
- Drug intolerance or side effects
- Biliary colic
- Gastroenteritis
CARE-UPDATE
08/22/25 - 09:31
Patient reports feeling better but has noticed a sensation during urination. Current CT scan shows calcification in the same location on the kidney. Dr. Carcamo suspects potential fluid buildup suggesting possible drainage issues and may require a
more detailed imaging study (a CAT scan with contrast) for further confirmation. A cT with contrast has been ordered to better assess the kidney and ureter involvement before considering surgical intervention. Patient advised to strain urine to
monitor for kidney stones. A hat will be provided for assistance with urine collection.
CARE-UPDATE
08/22/25 - 11:47
The patient will remain in the hospital for IV antibiotic therapy before undergoing a planned procedure on Monday to assess and potentially address the obstruction. The second scan indicates a potential obstruction in the ureter, which may be a
kidney stone or calcification, causing swelling around the kidney and compromised drainage. The patient experiences pain and nausea, for which Toradol has been ordered, along with IV antibiotics. The patient has agreed to stay in the hospital,
acknowledging the need for management prior to the procedure. The patient expresses discomfort due to constipation, and inpatient orders will be addressed by the attending physician. To maintain hydration, the patient is allowed to drink and eat
with restrictions starting at midnight on Monday.
<Radha Godinez PA-C - Last Filed: 08/22/25 15:14>
*Pulse Oximetry
SaO2: 100
Oxygen Mode of Delivery: Room air
Patient hypoxic: no (99)
*Critical Care Note
Total Time (30-74mins, 75-104mins- exclusive of procedures): Not Applicable
ED Attending Note
<Radha Godinez PA-C - Last Filed: 08/22/25 15:14>
-
Portions of this chart may have been created with voice recognition software.� Occasional wrong word or��sound alike� substitutions may have occurred due to the inherent limitations of voice recognition software.
<Adeline Mendenhall DO - Last Filed: 08/22/25 13:19>
ED Attending Note
Patient seen and examined by attending physician: Yes
I performed the substantive portion of visit, reviewed & personally made and approve the management plan that is documented in note by myself or OLLIE.: Yes
I performed a history and physical exam of patient and discussed management with resident, I reviewed resident's note and agree with documented findings and plan of care.: Yes
ED Attending Note:
79-year-old female with known history of right sided renal calculus, has been following with urology, presenting to the emergency department for worsening right sided abdominal pain with nausea and vomiting. Notes symptoms started last evening.
Reports prior history of kidney stones, requiring stenting. Patient follows with Dr. Carcamo. Denies fever. Vital signs on arrival are significant for hypertension which has since improved.
Patient additionally seen and evaluated by physician admissions assistant, noted to have right sided abdominal pain, wrapping to the flank with concern for acute on chronic ureteral process with known history of nephrolithiasis. Patient received Dilaudid with
improvement of pain. To my assessment, patient much more comfortable. CT is consistent with a right sided obstructive uropathy from a calculus in the mid right ureter with delayed right renal excretion. In discussion with urology, plan for
admission for operative management. Patient's urine does show evidence of infection, however is on Pyridium. Labs otherwise unremarkable with no leukocytosis. Patient to receive antibiotics. Patient in agreement with admission
Discharge Plan
Departure
Patient Disposition: Admit
Date of Disposition: 08/22/25
Time of Disposition: 11:35
Admit to: Med/Surg
Presentation/result/management discussed w/ accepting MD/DO: Hospitalist
Patient with high blood pressure during this ER visit?: No
Condition: Fair
Covid-19: Not Applicable
Discharge Problem:
Flank pain
Interventions
Interventions:
*Risk Screen - Suicide Last Done: 08/22/25 06:49
*General Assessment Last Done: 08/22/25 06:49
*Neglect/Abuse Screening Last Done: 08/22/25 06:49
*ED- Fall Risk Assessment Last Done: 08/22/25 06:49
*ED COVID-19 Vaccine History Last Done: 08/22/25 06:49
*ED Influenza Vaccine History Last Done: 08/22/25 06:49
*Nursing Disposition Last Done: 08/22/25 13:35
HK-Gesqtb-Cgnhxtriku Assessment Last Done: 08/22/25 07:00
ED-Female Genitourinary Assessment Last Done: 08/22/25 07:00
[2025-08-22] MEDS: DILAUDID 0.5 MG IV (07:22)
[2025-08-22] MEDS: ZOFRAN 4 MG IV (07:22)
[2025-08-22] MEDS: NSS 1000 IV ×2 (07:23→16:22)
[2025-08-22 07:36] LABS: Urine Character Clear (Clear)
[2025-08-22 07:52] LABS: Urine Red Blood Cell 90-100 /HPF (0-2)
[2025-08-22 07:56] LABS: Hematocrit 39.1 % (37.0-47.0); Hemoglobin 13.3 g/dL (12.0-16.0); Mean Corp Hgb Conc. 34.0 g/dL (33.0-37.0); Mean Corpuscular Volume 81.0 fL (81.0-99.0); Nucleated Red Blood Cells % 0 %; Platelet Count 307 10^3/uL (130-400); Red Cell Dist. Width 20.9 % (11.5-14.5)
[2025-08-22 08:12] LABS: ALT (SGPT) 27 U/L (0-35); AST (SGOT) 28 U/L (14-36); Albumin 4.4 g/dl (3.5-5.0); Alkaline Phosphatase 101 U/L (38-126); Blood Urea Nitrogen 18 mg/dl (7-17); Calcium 10.2 mg/dl (8.4-10.2); Carbon Dioxide 25 mmol/L (22-30); Chloride 108 mmol/L (98-107); Estimated Creatinine Clearance 49 ml/min; Glucose 185 mg/dl (70-99); Lipase 196 U/L (23-300); Potassium 3.7 mmol/L (3.5-5.1); Sodium 140 mmol/L (135-145); Total Protein 7.6 g/dl (6.3-8.2); eGFR 56.60
[2025-08-22] MEDS: TORADOL 15 MG IV (11:56)
[2025-08-22] MEDS: ROCEPHIN 1000 MG IV (11:56)
--- NOTE | 2025-08-22 12:10 | HPS.HSE ---
Addendum entered and electronically signed by Lai Farr MD 08/22/25 16:26:
This is an addendum to the H&P written by Katiana Price on 08/22/2025. �Patient seen and examined independently with [employer]ORT [employer] MANAGER.
79-year-old female past medical history of nephrolithiasis, GERD, osteoarthritis, polymyalgia rheumatica, presenting with right flank/groin abdominal pain and burning with urination since last night. �1 episode of vomiting.
Urinalysis shows 67 WBC, positive nitrates, +1 leukocyte esterase. �+4 blood. �Labs unremarkable.
CT abdomen pelvis shows right-sided obstructive uropathy secondary to 0.2 to 0.3 cm calculus in the mid right ureter with delayed right renal excretion. �Proximal right periureteral stranding.
Patient with obstructive right ureteral stone. �IV fluids, ceftriaxone, Pain control,� urology planning operating room on Monday.
Original Note:
Family Physician
-
Family Physician: Juancarlos Quesada
Chief Complaint
-
right flank pain
History of Present Illness
79 year old with PMH for Asthma, GERD, HTN, Hypercholesterolemia, renal colic, kidney stones presented to us with right flank pain since last night. she felt the right groin pain, lower abdominal pain and flank pain last night.she took Keflex and
Pyridium. she was having urinary burning. she was not able to void.she vomited once last night after taking Pyridium and Keflex. denied fever, chills, HOLDER,dizzy or syncope. Denied cough, congestion, chest pain, short of breath.
CT with impression of calculus in the mid right ureter, moderate hydro ureterolithiasis, mild proximal right periureteral stranding small bilateral ninth obstructing renal calculi. Patient received a dose ceftriaxone. Admitting for further
management.
Medical History
Past Medical History
Past Medical History: Reports Other
Additional Past Medical History:
Asthma, GERD, HTN, Hypercholesterolemia ,Renal colic, bleeding diverticuli, kidney stones, cholelithiasis osteoarthritis, chronic pain syndrome, PMR
Past Surgical History: Reports Other
Additional Past Surgical History:
Ureteric stent placed
MOHS surgery to R flank
Right TKA, hysterectomy and cystocele repair, abdominoplasty, hernia repair, left hip replacement, right knee repair, sling
Social History
Tobacco: Non-smoker
Alcohol: Occasional
Drug: None
Personal:
Living: With Family
Family History
Family History: Not pertinent
Allergies / Home Medications
Allergies reflects when Allergies were last updated in [facility].
Home Medications with original date entered in [facility]
Allergy/Medication List:
Allergies
Allergy/AdvReac Type Severity Reaction Status Date / Time
Sulfa (Sulfonamide AdvReac pt reports Verified 08/22/25 06:55
Antibiotics) that she
has had
sulfa
drugs
without
problem
Home Medications
esomeprazole magnesium 40 mg capsule,delayed release (Nexium) 40 mg PO DAILY GERD 08/09/25
ezetimibe 10 mg tablet 10 mg PO DAILY High Cholesterol 08/09/25
polyethylene glycol 3350 17 gram oral powder packet (Miralax) 17 g PO Q48H Constipation 08/09/25
cephalexin 500 mg capsule 500 mg PO BIDPRN PRN uti symptoms 08/22/25
phenazopyridine 200 mg tablet 200 mg PO TIDPRN PRN uti symptoms 08/22/25
Review of Systems
-
Constitutional: Reports No Symptoms
EENT: Reports No Symptoms
Respiratory: Reports No Symptoms
Cardiac: Reports No Symptoms
Abdomen/GI: Reports No Symptoms
: Reports Flank Pain
Musculoskeletal: Reports No Symptoms
Skin: Reports No Symptoms
Neurological: Reports No Symptoms
Endocrine: Reports No Symptoms
Hematologic/Lymphatic: Reports No Symptoms
Psych: Reports No Symptoms
Physical Exam
Vital Signs
Vital Signs
Temp Pulse Resp BP Pulse Ox
98.1 F 61 16 144/63 98
08/22/25 07:35 08/22/25 08:00 08/22/25 08:00 08/22/25 08:30 08/22/25 08:00
Physical Exam
General: Well Developed, Well Nourished and No Apparent Distress
HEENT: NormoCephalic, Moist mucous membranes and Atraumatic
Respiratory: Clear
Cardiac: S1/S2 and Regular Rhythm; No Murmur or Rub
GI: Soft, Non Tender, Non Distended and Normal Bowel Sounds; No Organomegaly
Rectal: Deferred by Provider
Musculoskeletal: No Clubbing, No Cyanosis and No Edema
Skin: No Rash
Neuro: AO x 3 and Nonfocal/grossly intact
Psych: Calm
Laboratory Results
-
08/22/25 07:19
08/22/25 07:19
Laboratory Results
Total Bilirubin 0.7 mg/dl (0.2-1.3) 08/22/25 07:19
AST 28 U/L (14-36) 08/22/25 07:19
ALT 27 U/L (0-35) 08/22/25 07:19
Alkaline Phosphatase 101 U/L (38-126) 08/22/25 07:19
Lipase 196 U/L (23-300) 08/22/25 07:19
Data Reviewed
-
CT Scan: Report Reviewed by me
Lab Data: Labs Reviewed by me
Impression/Plan
-
#right flank pain secondary to ureter calculus
#UTI
-Ct with the impression of Approximate 0.2-0.3 cm calculus in the mid right ureter, essentially stable in position in comparison to recent prior CT, mild to moderate right hydroureteronephrosis, slightly increased. New mild proximal right
periureteral stranding.Additional small bilateral nonobstructing renal calculi as well as bilateral parapelvic renal cysts again seen.Cholelithiasis.
-fluids continued
-IV ceftriaxone
-Toradol and Dilaudid prn for pain
-keep patient NPO after MN on Monday,plan for OR on Monday
-Urology consulted.
#GERD
- Continue daily PPI.
# Hyperlipidemia
-Zetia continued
DVT Prophylaxis: SCDs
Code Status: Full
--- NOTE | 2025-08-22 14:02 | CM ---
chart reviewed and spoke with patient at ED bedside
Lives in [facility] with
Independent with ADLs and ambulation
no DME use at this time but has cane and walker from before
PCP Dr. Juancarlos Quesada
Pharmacy [facility]
no hx of VN nor SNF
hx of outpt PT at [facility]
DCP is to return home with no needs
can drive
Cm will continue to follow up for any dcp needs
[2025-08-22] MEDS: MIRALAX 17 GRAMS PO (16:29)
--- NOTE | 2025-08-22 16:54 | PTCARENOTE ---
Received pt from ER via [place]; accompanied by ER staff. Pt AAO x3, NEVES well, ambulatory to bed. Pt denies weakness/dizziness. Pt angry /irritable; wants private room. VSS. On room air- pulse ox 95%. Abd large, soft, to start chol lowering /2 Gm
Na diet. Pt DTV; instructed on straining all urine. IVF's NSS@ 130 ,l/hr stated via Lt AC site, currently infusing without sx of infiltration. oriented to [facility]. Resting in bed at present, no c/o. Will continue to monitor,.
--- NOTE | 2025-08-22 18:10 | CON.MD ---
Consultation - Medical
-
please see dictated note
reviewed with víctor and
ivf/antibx/check ucx
OR monday for bilateral ureteroscopy
Consultation
-
Date/Time Consultation Requested: 08/22/25 at 10am
Date/Time Consultation Performed: 08/22/25 at 6pm
Requesting Provider: ER
Performing Provider: Dr Carcamo
Reason for Consultation: flank pain
--- NOTE | 2025-08-22 19:40 | PTCARENOTE ---
Pt transferred to room 2121 via stretcher with all belongings. Report given to Ian VILLAFUERTE. Pt without c/o at time of transfer.
[2025-08-23] MEDS: NSS 1000 IV ×2 (00:27→21:11)
--- NOTE | 2025-08-23 02:15 | PTCARENOTE ---
Patient requesting IVF to be held until am. Education as to purpose give. Patient stated, 'Thank you but either you take it off or I'm ripping it out myself. I'll put it back on in the morning' TT to ZEINA, covering floor, to inform. IVF off at
this time. No finding when straining urine.
[2025-08-23 06:49] LABS: Hematocrit 37.2 % (37.0-47.0); Hemoglobin 12.5 g/dL (12.0-16.0); Mean Corp Hgb Conc. 33.6 g/dL (33.0-37.0); Mean Corpuscular Volume 84.2 fL (81.0-99.0); Platelet Count 291 10^3/uL (130-400); Red Cell Dist. Width 20.9 % (11.5-14.5)
[2025-08-23 07:00] VITALS: BP 141/63
[2025-08-23 07:33] LABS: Blood Urea Nitrogen 14 mg/dl (7-17); Calcium 9.2 mg/dl (8.4-10.2); Carbon Dioxide 28 mmol/L (22-30); Chloride 110 mmol/L (98-107); Estimated Creatinine Clearance 55 ml/min; Glucose 97 mg/dl (70-99); Potassium 4.1 mmol/L (3.5-5.1); Sodium 140 mmol/L (135-145); eGFR > 60.00
--- NOTE | 2025-08-23 08:00 | PTCARENOTE ---
Patient refusing IV fluids, education provide and MD notified. Patient tolerating PO fluids well. Plan of care ongoing.
[2025-08-23] MEDS: PROTONIX 40 MG PO (09:13)
[2025-08-23] MEDS: ZETIA 10 MG PO (09:14)
--- NOTE | 2025-08-23 10:00 | W.PN.URO.CBU ---
Today's Communication / Plan
-
OR tomorrow
Assessment / Plan
-
UTI
nephrolithiasis
abd pain
reviewed again with víctor
continue rocephin- await
plan for OR tomorrow for bilateral ureteroscopy- risks, benefits, alternatives and disabilities again reviewed
Diagnosis
-
Date of Service: August 23, 2025
-
Patient Diagnosis:
abdominal pain
Subjective
-
pt feeling ok
eating
no sig dysuria or hematuria
no fevers/wbc normal
ucx pending
Objective
-
Vital Signs
Temp Pulse Resp BP Pulse Ox
97.9 F 62 20 141/63 97
08/23/25 07:00 08/23/25 07:00 08/23/25 07:00 08/23/25 07:00 08/23/25 07:00
Intake and Output
08/22/25 08/23/25 08/24/25
06:59 06:59 06:59
Intake Total 1650 / 1650
Output Total 300 / 300
Balance 1350 / 1350
Intake:
Oral fluids 480 / 480
IV fluids (Total) 1170 / 1170
Output:
Urine, Voided 300 / 300
Other:
Number of approximated MODERATE 2
amounts of urine
Laboratory Results
08/23/25 06:07
08/23/25 06:07
Physical Exam
-
General - no acute distress
--- NOTE | 2025-08-23 10:16 | W.PN.HOSP.TC ---
Today's Communication/Plan
-
see plan
Assessment / Plan
Assessment / Plan
Gen: NAD, AAOx3.
Eyes: EOMI, PERRLA, no scleral icterus.
Neck: supple.
CV: RRR, +S1/S2, no m/r/g.
Resp: CTAB, no rales, wheezes, or rhonchi.
Abd: +BS, soft, NT, ND
Skin: No rashes.
Neuro: CN 2-12 intact, non-focal.
Psych: Normal mood and affect.
CT A/P: Right-sided obstructive uropathy noted secondary to 0.2-0.3 cm calculus in the mid right ureter with delayed right renal excretion. On delayed imaging, no excreted contrast is seen proximal or distal to the mid right ureteral calculus.
Acute UTI due to R ureterolithiasis with hydronephrosis:
-imaging above
-afebrile, no leukocytosis
-cont Rocephin
-IVFs (pt currently refusing), NPO after MN
-pain control
-follow UCx
-Uro following, for B/L ureteroscopy 08/24
Other problems:
Obesity due to excess calories: Affects all aspects of care, encourage wt loss
GERD: cont PPI
HLD: cont Zetia
FULL/SCDs
Anticipated Discharge: 24 - 48 hours
Subjective/Interval History
-
Date of Service: August 23, 2025
Denies R flank pain.
Objective Data
-
Labs:
Laboratory Results
08/23/25
06:07
WBC 4.5 L
Hgb 12.5
Hct 37.2
Plt Count 291
Sodium 140
Potassium 4.1
Chloride 110 H
Carbon Dioxide 28
BUN 14
Creatinine 0.9
Glucose 97
Calcium 9.2
Vital Signs:
Vital Signs
Temp Pulse Resp BP Pulse Ox
97.9 F 62 20 141/63 97
08/23/25 07:00 08/23/25 07:00 08/23/25 07:00 08/23/25 07:00 08/23/25 07:00
I&O
08/22/25 08/23/25 08/24/25
06:59 06:59 06:59
Intake Total 1650 / 1650
Output Total 300 / 300
Balance 1350 / 1350
[2025-08-23] MEDS: NSS IV ×2 (11:26→15:13)
--- NOTE | 2025-08-23 12:10 | PHA.VAN.IN ---
Assessment
- Assessment
Renal Function: Appears similar to baseline
AUC Dosing Plan
- Dosing Variables
Dosing Weight (kg): 96.343
Dosing CrCl (ml/min): 55
Vd coefficient (L/kg): 0.6
- Empiric Dosing
Initial / Loading Dose: 1500mg
Maintenance Regimen: 1500mg q24h
Estimated AUC (mcg*h/mL): 538
Estimated Peak (mcg*h/mL): 37.1
Estimated Trough (mcg/ml): 12.0
Estimated Half Life (H): 13.8
- Monitoring
No levels ordered at this time: consider at steady state
Pharmacokinetics Vancomycin I
- -
Patient Age: 79
Patient Sex: Female
Vancomycin Day #: 1
Indication: Genito-Urinary Tract
Requesting Provider: Dr. Rankin
Height / Weight:
Height 5 ft 3.5 in
Actual Weight 96.343 kg
IBW in k.6
- Vital Signs / Lab Results
Temp Pulse Resp BP Pulse Ox
97.9 F 62 20 141/63 97
08/23/25 07:00 08/23/25 07:00 08/23/25 07:00 08/23/25 07:00 08/23/25 07:00
Lab Results - Hematology
08/22/25 08/23/25
07:19 06:07
WBC 8.3 4.5 L
Lab Results - Chemistry
08/22/25 08/23/25
07:19 06:07
BUN 18 H 14
Creatinine 1.0 0.9
Estimated Creat Clear 49 55
Albumin 4.4
Lab Results - Urine
08/22/25
07:20
Urine Nitrite (Reflex) Positive A
Leukocyte Esterase Rfl 1+ A
Urine WBC (Reflex) 6-10
Ur Squamous Epith Cells 11-15
Urine Bacteria (Reflex) Moderate A
Microbiology Results
08/22/25 07:20 Urine Culture - Preliminary
Urine Enterococcus species
[2025-08-23] MEDS: VANCOCIN 530 MG IV (12:34)
[2025-08-23 13:50] VITALS: BP 153/72
--- NOTE | 2025-08-23 14:51 | PTCARENOTE ---
Patient reported itchy scalp jail through IV Vancomycin infusion. VS signs documented , no s/s of distress noted. MD notifies and advised continue to monitor. Infusion rate decreased. Patient tolerated IV Vancomycin well. Pt denies any complaints
at this time. plan of care ongoing.
[2025-08-23 15:00] VITALS: BP 157/78
[2025-08-23 23:07] VITALS: BP 135/61
[2025-08-24] VITALS (11 sets, daily range): BP systolic 129–174; BP diastolic 62–87
[2025-08-24] MEDS: VANCOCIN 530 MG IV (05:19)
--- NOTE | 2025-08-24 05:40 | PTCARENOTE ---
Pt has an active order for IV fluids to be infusing. Pt refusing IV fluids on previous shift. Pt requested for IV fluids to be restarted at 21:00. IV fluids were restarted. Pt then requesting for IV fluids to be stopped at 00:00.
[2025-08-24] MEDS: NSS IV ×3 (06:15→22:45)
[2025-08-24 07:23] LABS: Hematocrit 37.0 % (37.0-47.0); Hemoglobin 12.5 g/dL (12.0-16.0); Mean Corp Hgb Conc. 33.8 g/dL (33.0-37.0); Mean Corpuscular Volume 82.4 fL (81.0-99.0); Platelet Count 266 10^3/uL (130-400); Red Cell Dist. Width 20.5 % (11.5-14.5)
[2025-08-24 08:00] LABS: Blood Urea Nitrogen 10 mg/dl (7-17); Calcium 9.2 mg/dl (8.4-10.2); Carbon Dioxide 25 mmol/L (22-30); Estimated Creatinine Clearance 49 ml/min; Glucose 100 mg/dl (70-99); Potassium 3.8 mmol/L (3.5-5.1); Sodium 139 mmol/L (135-145); eGFR 56.60
--- NOTE | 2025-08-24 08:02 | PHA.VAN.FU ---
Vancomycin Assessment / Plan
- Assessment
Renal Function: Stable
WBC's are: Trending Down
In the past 24 hrs, patient has been: Afebrile
- Dosing Plan
Continue: 1500MG Q24H
- Monitoring Plan
No level(s) ordered at this time: CONSIDER NEXT FEW DAYS
- Follow Up
Pharmacy will continue to follow.
Vancomycin Follow UP
- -
Patient Age: 79
Patient Sex: Female
Vancomycin Day #: 2
Indication: Genito-Urinary Tract
Requesting Provider: Dr. Rankin
Height / Weight:
Height 5 ft 3.5 in
Actual Weight 96.343 kg
IBW in k.6
- Vital Signs / Lab Results
Temp Pulse Resp BP Pulse Ox
98.3 F 63 18 135/61 97
08/23/25 23:07 08/23/25 23:07 08/23/25 23:07 08/23/25 23:07 08/23/25 23:07
Lab Results - Hematology
08/22/25 08/23/25 08/24/25
07:19 06:07 07:05
WBC 8.3 4.5 L 3.9 L
Lab Results - Chemistry
08/22/25 08/23/25 08/24/25
07:19 06:07 07:05
BUN 18 H 14 10
Creatinine 1.0 0.9 1.0
Estimated Creat Clear 49 55 49
Albumin 4.4
Microbiology Results
08/22/25 07:20 Urine Culture - Preliminary
Urine Enterococcus species
[2025-08-24 08:09] LABS: Chloride 112 mmol/L (98-107)
--- NOTE | 2025-08-24 08:13 | W.PN.HOSP.TC ---
Today's Communication/Plan
-
see plan
Assessment / Plan
Assessment / Plan
Gen: NAD, AAOx3.
Eyes: EOMI, PERRLA, no scleral icterus.
Neck: supple.
CV: remains RRR, +S1/S2, no m/r/g.
Resp: remains CTAB, no rales, wheezes, or rhonchi.
Abd: remains +BS, soft, NT, ND
Skin: No rashes.
Neuro: CN 2-12 intact, non-focal.
Psych: Normal mood and affect.
08/22/25 07:20 Urine Urine Culture - Preliminary
Enterococcus species
CT A/P: Right-sided obstructive uropathy noted secondary to 0.2-0.3 cm calculus in the mid right ureter with delayed right renal excretion. On delayed imaging, no excreted contrast is seen proximal or distal to the mid right ureteral calculus.
Acute UTI due to L ureterolithiasis:
-imaging above, please note the discrepancy between the CT findings and findings on ureteroscopy below
-afebrile, no leukocytosis
-cont Vanco for UCx with Enterococcus (awaiting susceptibilities)
-cont IVFs for now (note, pt was refusing yesterday)
-pain control
-Uro following, case discussed with Dr. Carcamo over the phone
-s/p cysto/bilateral retrogrades, right ureteroscopy and stent/ left ureteroscopy/laser litho with stone extraction and stent
-advance diet
Other problems:
Obesity due to excess calories: Affects all aspects of care, encourage wt loss
GERD: cont PPI
HLD: cont Zetia
Pt's updated at bedside.
FULL/SCDs
Dispo: Likely d/c tomorrow
Anticipated Discharge: Within 24 hours
Subjective/Interval History
-
Date of Service: August 24, 2025
No new complaints.
Objective Data
-
Labs:
Laboratory Results
08/24/25
07:05
WBC 3.9 L
Hgb 12.5
Hct 37.0
Plt Count 266
Sodium 139
Potassium 3.8
Chloride 112 H
Carbon Dioxide 25
BUN 10
Creatinine 1.0
Glucose 100 H
Calcium 9.2
Vital Signs:
Vital Signs
Temp Pulse Resp BP Pulse Ox
98.3 F 63 18 135/61 97
08/23/25 23:07 08/23/25 23:07 08/23/25 23:07 08/23/25 23:07 08/23/25 23:07
I&O
08/23/25 08/24/25 08/25/25
06:59 06:59 06:59
Intake Total 1650 / 1650 1470 / 1470
Output Total 300 / 300
Balance 1350 / 1350 1470 / 1470
[2025-08-24] MEDS: ZOFRAN 4 MG IV (09:33)
--- NOTE | 2025-08-24 09:51 | W.IMMPOSTOP ---
Surgical Immed Post Op Note
-
Primary Surgeon:
hector
Assisting Surgeon:
Pre-op Diagnosis:
abdominal pain/stone/UTI
Post-op Diagnosis:
same
Procedure Performed:
+cysto/bilateral retrogrades, right ureteroscopy and stent/ left ureteroscopy/laser litho with stone extraction and stent
Anesthesia Type:
gen
Specimen / Cultures:
ucx
Estimated Blood Loss:
5cc
Complications:
none
Operative Findings:
mild cystitis cystica
bladder prolapse
right retrograde nl- ureteroscopy with no lesion/obstruction or stone
left stone treated
bilateral stents placed
continue vanco and awiait final cx result
[2025-08-24] MEDS: ZETIA 10 MG PO (10:23)
[2025-08-24] MEDS: PROTONIX 40 MG PO (10:23)
[2025-08-24] MEDS: DETROL LA 4 MG PO (10:23)
[2025-08-24] MEDS: TORADOL 15 MG IV ×2 (12:38→23:07)
[2025-08-24] MEDS: MIRALAX 17 GRAMS PO (15:11)
[2025-08-25 03:00] VITALS: BP 142/64
[2025-08-25] MEDS: VANCOCIN 530 MG IV (05:11)
[2025-08-25] MEDS: NSS IV ×2 (05:37→13:33)
[2025-08-25 07:15] VITALS: BP 144/69
--- NOTE | 2025-08-25 07:55 | W.PN.URO.CBU ---
Today's Communication / Plan
-
discharge when cx data back
Assessment / Plan
-
UTI- enterococcus
nephrolithiasis
abd pain
pt s/p successful ureteroscopies- NO STONE OR OBSTRUCTION ON RIGHT SIDE/LEFT STONE TREATED
ucx enterococcus- was changed over to vanc on monday- final sens pending
when cx back- would send out on another 5 days of appropriate antibx- then pt to resume urex bid
will call to schedule f/u for stent removal
Diagnosis
-
Date of Service: August 25, 2025
-
Patient Diagnosis:
abdominal pain
UTI- enterococcus
stones
s/p bilateral ureteroscopies, stents, treatment of left sided stone
Subjective
-
pt feels fine
expected stent irritation
no hematuria or fevers
final ucx pending
Objective
-
Vital Signs
Temp Pulse Resp BP Pulse Ox
98.0 F 64 16 144/69 98
08/25/25 07:15 08/25/25 07:15 08/25/25 07:15 08/25/25 07:15 08/25/25 07:15
Intake and Output
08/24/25 08/25/25 08/26/25
06:59 06:59 06:59
Intake Total 1470 / 1470 1910 / 1910
Output Total 925 / 925
Balance 1470 / 1470 985 / 985
Intake:
Oral fluids 1470 / 1470 1380 / 1380
IV piggybacks 530 / 530
Output:
Urine, Voided 925 / 925
Other:
Number of approximated SMALL 2 5
amounts of urine
Number of approximated MODERATE 2 4
amounts of urine
Number of unmeasured liquid
stools
Rectum 1
Review of Systems
-
Constitutional: No Symptoms
Respiratory: No Symptoms
Cardiac: No Symptoms
Abdomen/GI: No Symptoms
: Frequency
Physical Exam
-
General - no acute distress
[2025-08-25] MEDS: ZETIA 10 MG PO (08:04)
[2025-08-25] MEDS: PROTONIX 40 MG PO (08:04)
[2025-08-25] MEDS: SENOKOT-S 1 TABLET PO (08:16)
[2025-08-25 09:00] LABS: Hematocrit 37.5 % (37.0-47.0); Hemoglobin 12.6 g/dL (12.0-16.0); Mean Corp Hgb Conc. 33.6 g/dL (33.0-37.0); Mean Corpuscular Volume 84.3 fL (81.0-99.0); Platelet Count 279 10^3/uL (130-400); Red Cell Dist. Width 19.9 % (11.5-14.5)
[2025-08-25 09:41] LABS: Blood Urea Nitrogen 14 mg/dl (7-17); Calcium 9.4 mg/dl (8.4-10.2); Carbon Dioxide 27 mmol/L (22-30); Chloride 107 mmol/L (98-107); Estimated Creatinine Clearance 49 ml/min; Glucose 115 mg/dl (70-99); Potassium 4.3 mmol/L (3.5-5.1); Sodium 140 mmol/L (135-145); eGFR 56.60
--- NOTE | 2025-08-25 11:42 | CM ---
Addendum entered by Reva Solorio 08/25/25 15:10:
imm completed and signed form on chart.
Original Note:
Patient seen at bedside. Patient states that she anticipates discharge home but is awaiting information regarding antibiotic. Patient stated that she has no needs for transportation and CM reviewed IMM with patient. CM will continue to follow for
discharge planning needs.
Plan; home with no needs, pending antibiotic needs
[2025-08-25 12:03] VITALS: BP 139/61
--- NOTE | 2025-08-25 12:25 | W.PN.HOSP.TC ---
Today's Communication/Plan
-
await final urine sensitives for potential DC later today
Assessment / Plan
Assessment / Plan
Assessment:
Acute UTI due to L ureterolithiasis
- CT: Right-sided obstructive uropathy noted secondary to 0.2-0.3 cm calculus in the mid right ureter with delayed right renal excretion. On delayed imaging, no excreted contrast is seen proximal or distal to the mid right ureteral calculus.
- s/p cysto/bilateral retrogrades, right ureteroscopy and stent/ left ureteroscopy/laser litho with stone extraction and stent on 08/24
- Urology following
- Enterococcus (awaiting susceptibilities) on urine culture; continue Vanco for now
- regular diet
- OP f/u for stent removal
Obesity due to excess calories: Affects all aspects of care, encourage wt loss
GERD: cont PPI
HLD: cont Zetia
DVT ppx: SCDs
Code: Full
Anticipated Discharge: Within 24 hours
Subjective/Interval History
-
Date of Service: August 25, 2025
resting comfortably, no complaints at present
Objective Data
-
Labs:
Laboratory Results
08/25/25
08:24
WBC 8.2
Hgb 12.6
Hct 37.5
Plt Count 279
Sodium 140
Potassium 4.3
Chloride 107
Carbon Dioxide 27
BUN 14
Creatinine 1.0
Glucose 115 H
Calcium 9.4
Vital Signs:
Vital Signs
Temp Pulse Resp BP Pulse Ox
97.4 F 58 16 139/61 97
08/25/25 12:03 08/25/25 12:03 08/25/25 12:03 08/25/25 12:03 08/25/25 12:03
I&O
08/24/25 08/25/25 08/26/25
06:59 06:59 06:59
Intake Total 1469
Output Total 5 /
Balance 1469 985 / 98
Physical Exam
-
General: No Apparent Distress
HEENT: Normocephalic and Atraumatic
Respiratory: Negative Wheezes
Cardiac: Regular Rhythm and S1/S2
Genito-urinary: No Costovertebral Tender
Neuro: AO x 3
Psych: Calm
Data Reviewed
-
Total Time Spent with Patient (in minutes): 41
Labs: Labs Reviewed by me
--- NOTE | 2025-08-25 13:17 | W.DCSUMMARY ---
Discharge Summary
Discharge Data
Date of Admission: 08/22/25
Date of Discharge: 08/25/25
-
Pending Results: No
Hospital Course
79 y/o F with hx of Asthma, GERD, HTN, Hypercholesterolemia, renal colic, kidney stones presented to ER on 08/22 with flank pain along with urinary burning. CT showed Right-sided obstructive uropathy noted secondary to 0.2-0.3 cm calculus in the mid
right ureter with delayed right renal excretion. On delayed imaging, no excreted contrast is seen proximal or distal to the mid right ureteral calculus. Urology was consulted and patient underwent cysto/bilateral retrogrades, right ureteroscopy and
stent/ left ureteroscopy/laser lithotripsy with stone extraction and stent on 08/24. Urine culture grew Enterococcus and patient was placed on Vanco and later transitioned to Augmentin to finish a 14 day total course.
Patient will follow up with Urology outpatient for stent removal.
Discharge Plan
-
Patient Disposition: Home (Routine Discharge)
Discharge Diagnosis/Procedures: you had a urinary tract infection (enterococcus) and had bilateral ureteroscopies/ left sided stone treatment and stents
Condition: Good
Diet: No restrictions
Activity: No restrictions
Driving Restrictions: As prior to admission
Bathing Restrictions: OK to Shower
Wound Care: expect blood in urine, urinary urgency and some pain with urination
Referrals:
Juancarlos Quesada DO [Family Provider, Family Practice]
Rey Carcamo Jr., MD [Active, Urology]
Referral Note: call on monday to schedule appointment for stent removal
Additional Discharge Medication Instructions: restart for methenamine 2x per day after you finish the full strength antibiotic
Prescriptions:
New
phenazopyridine [Pyridium] 200 mg tablet
200 mg PO BID 10 Days Qty: 20 0RF
methenamine hippurate 1 gram tablet
1 g PO BID 30 Days Qty: 60 5RF
tramadol 50 mg tablet
50 mg PO Q8H PRN (Reason: Pain) Qty: 20 0RF
tolterodine 4 mg capsule,extended release 24hr
4 mg PO DAILY Qty: 10 0RF
amoxicillin-pot clavulanate 875-125 mg tablet
1 tab PO Q12H Qty: 20 0RF
Continued
polyethylene glycol 3350 [Miralax] 17 gram Powder In Packet
17 g PO Q48H
esomeprazole magnesium [Nexium] 40 mg Capsule,Delayed Release(Dr/Ec)
40 mg PO DAILY
ezetimibe 10 mg Tablet
10 mg PO DAILY
phenazopyridine 200 mg Tablet
200 mg PO TIDPRN PRN (Reason: uti symptoms)
Discontinued
cephalexin 500 mg Capsule
500 mg PO BIDPRN PRN (Reason: uti symptoms)
Patient Comments:
per pt last dose 'a couple of weeks ago'
Discharge Orders:
Discharge Patient (As Directed); Ordered 08/25/25
Ordered By: Loretta Carranza
Discharge Date and Time
Print Language: ARMENIAN
[2025-08-25] MEDS: TORADOL 15 MG IV (14:01)
--- NOTE | 2025-08-25 16:14 | PHA.VAN.FU ---
Vancomycin Assessment / Plan
- Assessment
Renal Function: Stable
WBC's are: WNL
In the past 24 hrs, patient has been: Afebrile
- Dosing Plan
Continue: Vanc 1500mg Q24H
- Monitoring Plan
No level(s) ordered at this time: consider levels if not switched to PO abx
- Follow Up
Pharmacy will continue to follow.
Vancomycin Follow UP
- -
Patient Age: 79
Patient Sex: Female
Vancomycin Day #: 3
Indication: Genito-Urinary Tract
Requesting Provider: Dr. Rankin
Pertinent Antimicrobial Allergies:
sulfonamide antibiotics - per pt has tolerated since
Height / Weight:
Height 5 ft 3.5 in
Actual Weight 96.343 kg
IBW in k.6
Pertinent Past Medical History: BMI 37
- Vital Signs / Lab Results
Temp Pulse Resp BP Pulse Ox
97.4 F 58 16 139/61 97
08/25/25 12:03 08/25/25 12:03 08/25/25 12:03 08/25/25 12:03 08/25/25 12:45
Lab Results - Hematology
08/23/25 08/24/25 08/25/25
06:07 07:05 08:24
WBC 4.5 L 3.9 L 8.2
Lab Results - Chemistry
08/23/25 08/24/25 08/25/25
06:07 07:05 08:24
BUN 14 10 14
Creatinine 0.9 1.0 1.0
Estimated Creat Clear 55 49 49
Microbiology Results
08/22/25 07:20 Urine Culture - Final
Urine Enterococcus faecium
08/24/25 09:26 Urine Culture - Preliminary
Urine NO GROWTH
[2025-08-25 16:38] VITALS: BP 152/78
[2025-08-27 12:01] LABS: Stone Analysis Mass 144 mg
== END 2025-08-25 16:46 | disposition home or self-care (01) | DRG 660 ==
LOC: 2 NORTH 12:50
PROVIDERS: Physician Assistant; Registered Nurse; ADMITTING PHYSICIAN Hospitalist; ATTENDING PHYSICIAN Internal Medicine; CONSULT PHYSICIAN Specialist; EMERGENCY PHYSICIAN Student in an Organized Health Care Education/Training Program; FAMILY PHYSICIAN Family Medicine
PROC: 0TC78ZZ Extirpation of Matter from Left Ureter, Via Natural or Artificial Opening Endoscopic (ICD-10-PCS; 2025-08-24)
PROC: 0T788DZ Dilation of Bilateral Ureters with Intraluminal Device, Via Natural or Artificial Opening Endoscopic (ICD-10-PCS; 2025-08-24)
DX: N39.0 Urinary tract infection, site not specified (principal); N20.2 Calculus of kidney with calculus of ureter; B95.2 Enterococcus as the cause of diseases classified elsewhere; N30.80 Other cystitis without hematuria; E78.00 Pure hypercholesterolemia, unspecified; I10 Essential (primary) hypertension; K21.9 Gastro-esophageal reflux disease without esophagitis; Z87.442 Personal history of urinary calculi; J45.909 Unspecified asthma, uncomplicated; Z87.440 Personal history of urinary (tract) infections; G89.4 Chronic pain syndrome; M35.3 Polymyalgia rheumatica; Z88.2 Allergy status to sulfonamides; Z96.642 Presence of left artificial hip joint; Z96.651 Presence of right artificial knee joint; Z90.710 Acquired absence of both cervix and uterus; E66.9 Obesity, unspecified; Z68.37 Body mass index [BMI] 37.0-37.9, adult
CPT/HCPCS: 74176; 74177; 74420; 76000; 80048; 80053; 81003; 81015; 82365; 83690; 85025; 85027; 87077; 87086; 87186; 96361; 96374; 96375; 99284; A4300; C1894; Q9967